=== PATIENT | female | born 1960 | race Caucasian/White ===

== ENCOUNTER 2019-01-17 09:22 | Outpatient (REF) | payer OTHER, SELFPAY ==
--- NOTE | 2019-01-17 09:10 | SKI_PTH ---
PATIENT: Janett Schroeder LOC: [facility] U#:[id number] AGE/SX: 58/F ROOM: RE01/17/[address]: Mely Abreu MD : 1960 BED: DIS: 01/17/2019 SPEC #: [id number] RECD: 01/17/19 12:48 STATUS: TIGRE REQ #: [id number] LANG: 01/17/19 09:[address]: Mely Abreu DEPT: Surgical Specimen RECD BY: Roseline Boykin ENTERED: 01/17/19 12:49 SP TYPE: ERNA MTZ DR: Yuri Cummings MD Tissues: 1 - SKIN CYST/TAG/DEBRIDEMENT Procedures: SKIN BIOPSY LEVEL 3 Comments: [id number]
== END 2019-01-17 09:42 ==
LOC: LBN 09:22
PROVIDERS: PCP Family Medicine; Visit Provider Obstetrics & Gynecology
DX: D23.5 Other benign neoplasm of skin of trunk (principal); A63.0 Anogenital (venereal) warts
CPT/HCPCS: 88304

== ENCOUNTER 2019-02-15 01:33 | Outpatient (CLI) | payer OTHER, SELFPAY ==
--- NOTE | 2019-02-15 07:30 | DI.MAMMO_ITS ---
SYMPTOMS/DIAGNOSIS: SCREENING, Z12.31 MAMMOGRAM: Mammograms were interpreted according to the usual protocol including computer analysis with CAD system, tomosynthesis and C view imaging. Comparison with prior examinations. Breast density B. No suspicious masses or microcalcifications are seen. There is an asymmetric density in the posterior right breast seen on the mediolateral oblique view. This has become progressively more prominent compared to prior examinations. Spot compression view is requested for further evaluation. Ultrasound may be indicated at that time. IMPRESSION: Additional views of the right breast as described above. Category 0. MQSA ASSESSMENT OF FINDINGS: Incomplete: Needs additional imaging evaluation. Category 0. Patient will receive a letter notifying them of these results. BI-RADS category B. There are scattered areas of fibroglandular density.
== END 2019-02-15 01:53 ==
PROVIDERS: PCP Family Medicine; Visit Provider Obstetrics & Gynecology
DX: Z12.31 Encounter for screening mammogram for malignant neoplasm of breast (principal); R92.8 Other abnormal and inconclusive findings on diagnostic imaging of breast
CPT/HCPCS: 77063; 77067

== ENCOUNTER 2019-02-19 07:22 | Outpatient (CLI) | payer OTHER, SELFPAY ==
[2019-02-19 08:51] LABS: Anion Gap 10.4 mmol/L (3-11); BUN 10 mg/dL (7-18); CO2 26.6 mmol/L (21.0-32.0); CREATININE 0.68 mg/dL (0.55-1.02); Chloride 106 mmol/L (98-107); Glucose 112 mg/dL (70-100); Potassium 4.2 mmol/L (3.5-5.1); Sodium 143 mmol/L (136-145)
== END 2019-02-19 07:42 ==
PROVIDERS: PCP Family Medicine; Visit Provider Family Medicine
DX: R73.01 Impaired fasting glucose (principal)
CPT/HCPCS: 36415; 80048

== ENCOUNTER 2019-02-20 00:35 | Outpatient (CLI) | payer OTHER, SELFPAY ==
--- NOTE | 2019-02-20 09:00 | DI.COMBO_ITS ---
SYMPTOMS/DIAGNOSIS: F/U MAMMO, DENSITY POSTERIOR RIGHT BREAST HAS BECOME PROGRESSIVELY MORE PROMINENT ADDITIONAL VIEWS OF THE RIGHT BREAST AND RIGHT BREAST ULTRASOUND: A mediolateral compression spot film of the right breast was obtained today. Fibroglandular tissue is demonstrated. There is no definite mass. At ultrasound, no cyst or mass is seen. Six-month follow-up mammogram and ultrasound is recommended. SUMMARY: Category 3, breast density category B. MQSA ASSESSMENT OF FINDINGS: Probably benign. Six month follow-up recommended. Category 3. Patient will receive a letter notifying them of these results. BI-RADS category B. There are scattered areas of fibroglandular density.
== END 2019-02-20 00:55 ==
PROVIDERS: PCP Family Medicine; Visit Provider Obstetrics & Gynecology
DX: Z12.31 Encounter for screening mammogram for malignant neoplasm of breast (principal); R92.8 Other abnormal and inconclusive findings on diagnostic imaging of breast; N64.89 Other specified disorders of breast
CPT/HCPCS: 76642; 77063; 77067

== ENCOUNTER 2019-05-16 10:45 | Outpatient (CLI) | payer OTHER, SELFPAY ==
--- NOTE | 2019-05-16 10:05 | DI.RAD_ITS ---
SYMPTOM/DIAGNOSIS: RT ANKLE PAIN, S/P ORIF, RECENT NEW TRAUMA RIGHT ANKLE: Three views were obtained. Note is again made of previously described fractured fibulotibial screw with plate and screw fixation remaining in the fibula. Alignment appears unchanged in comparison with the previous films.
== END 2019-05-16 11:05 ==
PROVIDERS: PCP Family Medicine; Visit Provider Student in an Organized Health Care Education/Training Program
DX: M25.571 Pain in right ankle and joints of right foot (principal); S82.451D Displaced comminuted fracture of shaft of right fibula, subsequent encounter for closed fracture with routine healing
CPT/HCPCS: 73610

== ENCOUNTER 2019-08-20 02:32 | Outpatient (CLI) | payer OTHER, SELFPAY ==
--- NOTE | 2019-08-20 10:06 | DI.MAMMO_ITS ---
EXAM: MG MAMMO DIAGNOSTIC UNI CLINICAL HISTORY: follow up 6month for right breast density R92.2. TECHNIQUE: Full field digital CC and MLO mammographic images were obtained with 3D tomosynthesis and utilizing computer aided detection (CAD). COMPARISON: 2009 through February of 2019. FINDINGS: Breast Density - Category B - Scattered areas of fibroglandular density This is a six-month follow-up for an area asymmetric density seen posteriorly in the left breast. Masses/Architectural Distortion: None seen. Previously noted area of asymmetry is not seen on the cur rent exam, consistent with overlying fibroglandular tissue. Microcalcifications: No suspicious pleomorphic-type calcifications are seen. Skin Thickening/Nipple Retraction: None. Axilla: Unremarkable. IMPRESSION: 1. BI-RADS category 1, negative. No significant interval change with no specific features of maligna ncy noted. Bilateral screening mammogram should be resumed in 6 months. 2. Unless there is more urgent need, screening mammography is recommended, as per [employer] guidelines. A negative radiographic report should not delay biopsy if a dominant or clinically suspicious mass is present. Up to ten percent of cancers are not identified on mammography. A negative report may reinforce clinical impression. Adenosis and dense breasts may obscure an underlying neoplasm. False positive reports average 6 to 10%. Patient will receive a letter notifying them of these results. BI-RADS Cat 1 - Negative. Breast Density - Category B - Scattered areas of fibroglandular density.
== END 2019-08-20 02:52 ==
PROVIDERS: PCP Family Medicine; Visit Provider Obstetrics & Gynecology
DX: Z12.31 Encounter for screening mammogram for malignant neoplasm of breast (principal); R92.8 Other abnormal and inconclusive findings on diagnostic imaging of breast; N64.59 Other signs and symptoms in breast
CPT/HCPCS: 77061; 77065; G0279

== ENCOUNTER 2020-04-08 03:57 | Outpatient (CLI) | payer OTHER, SELFPAY ==
[2020-04-08 09:40] LABS: Anion Gap 3.8 mmol/L (3-11); BUN 10 mg/dL (7-18); CO2 30.2 mmol/L (21.0-32.0); CREATININE 0.63 mg/dL (0.55-1.02); Calcium 9.1 mg/dL (8.5-10.1); Chloride 106 mmol/L (98-107); Glucose 111 mg/dL (74-106); Potassium 4.4 mmol/L (3.5-5.1); Sodium 140 mmol/L (136-145); TSH 1.71 uIU/mL (0.36-3.74)
== END 2020-04-08 04:17 ==
PROVIDERS: PCP Family Medicine; Visit Provider Family Medicine
DX: I10 Essential (primary) hypertension (principal); R53.83 Other fatigue
CPT/HCPCS: 36415; 80048; 84443

== ENCOUNTER 2020-08-31 16:47 | Emergency (ER) | payer OTHER, SELFPAY ==
[2020-08-31] VITALS (30 sets, daily range): BP systolic 101–186; BP diastolic 62–87; PULSE 75–89; RESP 15–20; TEMP 36.7; O2SAT 94–99
[2020-08-31] MEDS: Normal Saline 1,000 ML 1000 ML IV (17:17)
[2020-08-31] MEDS: EPINEPHrine 1 MG/ML AMP pres-free 0.3 MG SC (17:20)
[2020-08-31] MEDS: methylPREDNISolone SUCC 125 MG VIAL IVP (17:22)
[2020-08-31] MEDS: diphenhydrAMINE 50 MG/ML VIAL IVP (17:22)
[2020-08-31] MEDS: FAMOTIDINE 20 MG/50 ML BAG 200 MG IVPB (17:22)
--- NOTE | 2020-08-31 17:22 | W.ED.GENAD ---
Discharge Plan Disposition Patient Disposition: HOME Condition: Stable Discharge Details Clinical Impression: Anaphylactic reaction Primary Care Provider: Garrison Beltrán ED Provider: Deven Kaplan Home Meds and New Rx's Prescriptions: New prednisone 20 mg tablet 40 mg PO DAILY Qty: 8 RF: 0 diphenhydramine HCl [Benadryl Allergy] 25 mg tablet 25 mg PO TID Qty: 8 RF: 0 epinephrine [EpiPen] 0.3 mg/0.3 mL auto-injector 0.3 mg IM ONCE PRN (Reason: anaphylaxis) Qty: 1 RF: 0 Continued Flovent HFA 110 mcg/actuation HFA aerosol inhaler 2 puff Inhalation BID Qty: 1 RF: 3 loratadine [Claritin] 10 mg Tablet 10 mg PO DAILY RF: 0 Discharge Instructions Instructions: Anaphylaxis (ED) Additional Instructions: Please take prednisone as prescribed. Your next dose is tomorrow afternoon. Please take Benadryl 25 mg every 8 hours for the next 2 days. Please stop taking Claritin while you are using Benadryl. Please contact your primary care physician to arrange follow-up. Be sure to discuss your reaction with occupational medicine for recommendations on whether or not to receive the second vaccine dose. Return to the ER for any worsening or new concerning symptoms. Referrals: Occupational Medicine [Outside] Garrison Beltrán [Primary Care Provider] - Medical Decision Making 17:00 -- 60-year-old female here approximately 2 hours after receiving return COVID-19 vaccine throat tightness and swelling that started about an hour after receiving vaccination also with dizziness, hot flashes, generalized feeling of warmth and some nausea. Airway is currently intact but I am concerned about symptoms and potential for progression. Plan to treat for anaphylaxis with epinephrine SC, Solu-Medrol IV, Benadryl IV, and Pepcid IV. Patient is hypertensive. Saturating well and not tachycardic. 17:50 --patient reassessed and flushing improved. 18:06 -- patient now complaining of cough and chest discomfort. screening ECG was nondiagnostic, please see report. --Chest x-ray was reviewed and interpreted by radiology: No active cardiopulmonary disease identified. The cardiomediastinal silhouette is within normal limits. --Patient reassessed and notes all symptoms resolved. Feels much better. 21:30 --repeat ECG nondiagnostic, please see report. Troponin was checked and normal. Blood pressure improved. Patient continues to show no signs of allergic reaction at this time. Plan to continue antihistamine, prednisone, and plan for outpatient follow-up. I encouraged her to contact occupational medicine to discuss whether or not second vaccine dose is contraindicated. Disposition decision was made weighing the risks and benefits of hospitalization versus outpatient treatment, the risk for further decompensation, and the patient's wishes. The patient was stable and requested discharge. Prior to discharge, my usual and customary return precautions were reviewed with the patient - this included follow-up instructions and reason to return to the emergency department if condition worsens, does not improve as expected, or other new concerns arise. HPI General Mode of arrival: ambulatory. Date/Time Provider Initiated Documentation: 08/31/20 16:51. Limitations to Documentation: no limitations. Information obtained by: patient. HPI Narrative: 60-year-old female here approximately 2 hours after receiving return COVID-19 vaccine throat tightness and swelling that started about an hour after receiving vaccination. She does have some general feeling of warm and did have some nausea initially. No difficulty breathing. She has had some hot flashes and dizziness. Symptoms are moderate. No modifiers. Persistent. Related Data Home Medications Medication Instructions Recorded Confirmed fluticasone propionate 110 2 puff INHALATION BID #1 ea 09/03/19 08/31/20 mcg/actuation HFA aerosol inhaler diphenhydramine HCl [Benadryl 25 mg PO TID #8 tab 08/31/20 Allergy] epinephrine [EpiPen] 0.3 mg IM ONCE PRN #1 ea 08/31/20 loratadine [Claritin] 10 mg PO DAILY 08/31/20 08/31/20 prednisone 40 mg PO DAILY #8 tab 08/31/20 Previous Rx's Medication Instructions Recorded fluticasone propionate 110 2 puff INHALATION BID #1 ea 09/03/19 mcg/actuation HFA aerosol inhaler diphenhydramine HCl [Benadryl 25 mg PO TID #8 tab 08/31/20 Allergy] epinephrine [EpiPen] 0.3 mg IM ONCE PRN #1 ea 08/31/20 prednisone 40 mg PO DAILY #8 tab 08/31/20 Allergies Allergy/AdvReac Type Severity Reaction Status Date / Time morphine Allergy Severe skin rash Verified 08/31/20 17:39 povidone-iodine Allergy Severe red rash Verified 08/31/20 17:39 [From Betadine] for days soap [From Betadine] Allergy Severe red rash Verified 08/31/20 17:39 for days General Stated Complaint: Allergic TASH: 2 Review of Systems All systems reviewed & are unremarkable except as noted in HPI and below Constitutional Constitutional: Denies fever(s) ENT Ears, Nose, Mouth, and Throat: Reports as per HPI Cardiovascular Cardiovascular: Denies dyspnea Respiratory Respiratory: Denies dyspnea Gastrointestinal Gastrointestinal: Reports as per HPI Integumentary/Breasts Skin/Breast: Reports erythema [facility] Medical History Closed fracture of right ankle (10/05/16) Perimenopause (11/03/15) Right posterior tibial strain Surgical History Cholecystectomy (~1987) Colonoscopy - [facility] 01/14/14;[facility] [place];NEG Status post cholecystectomy Status post tonsillectomy Tonsillectomy 20 yrs old Family History Mother , Lung CA at age 70. Neoplasm LUNG Father , 72 Diabetes Aneurysm Heart disease Hyperlipidemia Stroke Sister , 58 Heart disease Hyperlipidemia Diabetes Sister , 56 Fibromyalgia Depression Cancer Grandfather Neoplasm STOMACH Grandfather Neoplasm SKIN Grandmother Neoplasm LYMPHOMA Grandmother Neoplasm STOMACH Son , 34 Alcohol abuse Son , 33 Substance abuse Daughter Autoimmune disease Heart disease Social History Smoking/Tobacco Use Status: Never Second Hand Exposure: Yes Smoking risk assessment performed?: Yes Alcohol Intake: current Alcohol Intake frequency: holidays/special occasions only Alcohol type: beer, wine and hard liquor Drug use: Never Substance use type: does not use Counseling given: No Counseling provided: none Caregiver/Support person: No Household members: spouse Housing: house Communication Needs: None Do you need help understanding health information?: Never Pets and animals: Yes (COWS,PIGS,CHICKENS,TURKEYS,GUINEAHENS) Pets and animals: cat(s) and dog(s) Sexually active: Yes Do you think of yourself as: straight/heterosexual Current gender identity: female What is your relationship status?: How often do you get together with friends or relatives?: once per week Do you belong to any clubs or organized social groups?: no Panel score (0-1 are the most socially isolated patients): 1 What type of physical activity do you participate in: none Sandy/Jehovah'S Witness: Sabianism Special sandy needs: No Seatbelt use: sometimes Helmet use: Yes Drive intox or ride w/intox jinrikisha driver: No Exam Const General: cooperative and no acute distress HENMT Mouth: oropharynx normal, moist mucous membranes, no audible dysphonia, no drooling and no muffled voice Throat: posterior oropharynx normal, uvula midline and no uvular edema Eyes Conjunctivae: normal conjunctivae Sclera: normal sclerae Neck Neck: trachea midline and supple Resp Auscultation: clear to auscultation bilaterally, no rales, no rhonchi and no wheezes Cardio Rate: regular rate and not tachycardic Rhythm: regular rhythm GI Palpation: soft, not firm, no guarding, no masses, not rigid and nontender Skin Rashes: rashes noted (Mild redness bilateral upper extremities) Neuro General: patient alert, patient awake and tone normal Extrem General: no edema Psych Appearance: grossly normal Mental Status: mental status grossly normal Course Vital Signs Vital signs: Vital Signs Temperature 36.7 C 08/31/20 16:51 Pulse 87 08/31/20 16:51 Respiratory Rate 20 08/31/20 16:51 Blood Pressure 181/84 H 08/31/20 16:51 Pulse Oximetry 97 08/31/20 16:51 Temperature 36.7 C 08/31/20 16:51 Temperature Source Skin 08/31/20 16:51 Pulse 87 08/31/20 16:51 Respiratory Rate 20 08/31/20 16:51 Blood Pressure 181/84 H 08/31/20 16:51 Blood Pressure Position Sitting 08/31/20 16:51 Pulse Oximetry 97 08/31/20 16:51 Oxygen Delivery Method Room Air 08/31/20 16:51 Oxygen Flow Rate 0 08/31/20 16:51 Critical Care Time Critical Care Time Critical Care Time: Yes Total Critical Care Time: 40 Attestation: I spent greater than 40 minutes addressing this patient's immediate life threats. Please see MDM section of note. This time was spent engaged in work directly related to the patient's care, exclusive of separate procedures, and failure to initiate these interventions would have likely resulted in clinically significant or life threatening deterioration in the patient's condition.
[2020-08-31 17:42] LABS: TSH (W/Ref FT4) 1.83 uIU/mL (0.36-3.74)
--- NOTE | 2020-08-31 17:45 | RT.EKG_ITS ---
APPROVED REPORT Exam: Resting ECG Patient Location: E HR:81 bpm ECG Measurements Heart Rate 81 AXIS AL 149 P 20 QRSd 88 QRS -4 QT 434 T 55 QTc 505 Conclusion Sinus rhythm...normal P axis, V-rate 60- 99 no stemi
--- NOTE | 2020-08-31 19:15 | DI.RAD_ITS ---
EXAM: XR PORTABLE CHEST AP CLINICAL HISTORY: chest pain TECHNIQUE: 2D digital imaging was performed. COMPARISON: CR CHEST 2 VIEWS PA,LAT from 05/04/2016 FINDINGS: LUNGS: Not well inflated but clear. No pleural abnormality seen. HEART: Normal. MEDIASTINUM: Normal. BONES: Degenerative changes AC joints. Mild degenerative changes in the spine. IMPRESSION: No acute pulmonary findings. DATA REPOSITORY: RADIATION DOSE DELIVERED:
--- NOTE | 2020-08-31 19:49 | DI.VRAD_ITS ---
PROCEDURE INFORMATION: Exam: XR Chest, 1 View Exam date and time: 08/31/2020 7:27 PM Age: 60 years old Clinical indication: Chest pain; Type not specified TECHNIQUE: Imaging protocol: XR of the chest Views: 1 view. COMPARISON: CR CHEST 2 VIEWS PA,LAT 05/04/2016 5:49 AM FINDINGS: Lungs: The lungs are clear. There is no pulmonary vascular congestion. Pleural space: No layering pleural effusions are identified. Heart/Mediastinum: The cardiomediastinal silhouette is within normal limits. Bones/joints: There is mild bilateral AC joint arthrosis, as on prior study. IMPRESSION: No active cardiopulmonary disease identified. Unchanged exam. Dictated and Authenticated by: Yuri Wallis MD. Ordering:MUNIR Carvalho MD
--- NOTE | 2020-08-31 20:15 | RT.EKG_ITS ---
APPROVED REPORT Exam: Resting ECG Patient Location: E HR:81 bpm ECG Measurements Heart Rate 81 AXIS AL 163 P 10 QRSd 86 QRS -13 QT 416 T 50 QTc 485 Conclusion Sinus rhythm...normal P axis, V-rate 60- 99
[2020-08-31 20:34] LABS: HCT 39.1 % (36.0-46.0); HGB 12.8 g/dL (11.2-15.7); MCH 25.8 pg (27.0-33.0); MCHC 32.7 % (32.0-36.0); MCV 78.7 fL (80-95); MPV 9.1 fL (8.0-11.0); Platelet Count 299 10^3/uL (130-400); RBC 4.97 10^6/uL (3.93-5.22); RDW 14.3 % (11.7-14.6); RDW-SD 40.8 fL; WBC 10.54 10^3/uL (4.4-10.8)
[2020-08-31 20:50] LABS: ALT 79 U/L (14-59); AST 39 U/L (15-37); Albumin 3.7 g/dL (3.4-5.0); Alkaline Phosphatase 114 U/L (46-116); Anion Gap 6.8 mmol/L (3-11); BUN 9 mg/dL (7-18); Bilirubin, Total 0.5 mg/dL (0.2-1.0); CO2 26.2 mmol/L (21.0-32.0); CREATININE 0.81 mg/dL (0.55-1.02); Calcium 8.7 mg/dL (8.5-10.1); Chloride 109 mmol/L (98-107); Glucose 111 mg/dL (74-106); Potassium 3.6 mmol/L (3.5-5.1); Sodium 142 mmol/L (136-145); Total Protein 7.7 g/dL (6.4-8.2)
[2020-08-31 21:05] LABS: Troponin I < 0.05 ng/mL (<0.06)
== END 2020-08-31 21:30 | disposition home or self-care (01) ==
PROVIDERS: Emergency Provider Student in an Organized Health Care Education/Training Program; PCP Family Medicine
DX: T80.52XA Anaphylactic reaction due to vaccination, initial encounter (principal); T50.B95A Adverse effect of other viral vaccines, initial encounter; R09.89 Other specified symptoms and signs involving the circulatory and respiratory systems; R07.89 Other chest pain; R05 Cough; R23.2 Flushing
CPT/HCPCS: 36415; 80053; 85027; 93005; 96361; 96372; 96374; 96375; 99291; 71045; 84443; 84484; 93010; J0171; J1200; J2930

== ENCOUNTER 2021-01-18 10:04 | Outpatient (REF) | payer OTHER, SELFPAY ==
--- NOTE | 2021-01-18 08:40 | PAPFT_PTH ---
PATIENT: Janett Schroeder LOC: [facility] U#:[id number] AGE/SX: 60/F ROOM: RE01/18/[address]: LIAM Johns : 1960 BED: DIS: 01/18/2021 SPEC #: [id number] RECD: 01/18/21 12:57 STATUS: TIGRE REMiguel Angel #: [id number] LANG: 01/18/21 08:[address]: Sydnie Wright DEPT: [facility] Cytology RECD BY: Roseline Boykin ENTERED: 01/18/21 12:58 SP TYPE: PAPFT OTHR DR: Garrison Beltrán MD Tissues: 1 - CX/ENDOCX FOR PAP SMEARS Procedures: PAP THIN PREP/UVM Screening HPV DNA PROBE Comments: [id number]
== END 2021-01-18 10:05 | disposition home or self-care (01) ==
LOC: LBN 10:04
PROVIDERS: PCP Family Medicine; Visit Provider Nurse Practitioner Family
DX: Z12.4 Encounter for screening for malignant neoplasm of cervix (principal); Z11.51 Encounter for screening for human papillomavirus (HPV)
CPT/HCPCS: 88142; 87624

== ENCOUNTER 2021-01-28 01:38 | Outpatient (CLI) | payer OTHER, SELFPAY ==
--- NOTE | 2021-01-28 06:45 | DI.MAMMO_ITS ---
Exam(s) MAMMO SCREENING EXAM: MAMMO SCREENING CLINICAL HISTORY: screening,Z12.39. TECHNIQUE: Bilateral full field digital CC and MLO mammographic images were obtained with 3D tomosyn thesis and utilizing computer aided detection (CAD). COMPARISON: Prior mammograms dating back to 2012, the most recent being February 2019. Right breast ultrasound February 2019 also reviewed FINDINGS: There has been no significant change in the appearance and distribution of the fibroglandular tissue. Asymmetric density the in the right breast is unchanged from prior studies. Benign punctate microcal cifications are noted in both breasts. There are no new spiculated masses nor malignant appearing microcalcification groups. There is no significant architectural distortion nor skin thickening-retraction. IMPRESSION: No radiographic evidence of malignancy. BI-RADS Category 1 - Negative Breast Density - Category B - Scattered areas of fibroglandular density Breast density Category C or D implies that the patient has dense breast tissue. Dense breast tissue can make it harder to find cancer on a mammogram. Dense breast tissue is also associated with an incr eased risk of breast cancer. This information about the result of the mammogram report was provided to the patient to raise their awareness. Use this report when you speak with the patient about their risks for breast cancer, which includes their family history. At that time, you may recommend additional screening tests (Ultrasoun d or MRI) as these tests may add significant information. A negative radiographic report should not delay biopsy if a dominant or clinically suspicious mass is present. Up to ten percent of cancers are not identified on mammography. A negative report may reinforce clinical impression. Adenosis and dense breasts may obscure an underlying neoplasm. False positive reports average 6 to 10%. Patient will receive a letter notifying them of these results.
== END 2021-01-28 01:58 ==
PROVIDERS: PCP Nurse Practitioner Family; Visit Provider Nurse Practitioner Family
DX: Z12.31 Encounter for screening mammogram for malignant neoplasm of breast (principal)
CPT/HCPCS: 77063; 77067

== ENCOUNTER 2021-04-15 04:20 | Outpatient (CLI) | payer OTHER, SELFPAY ==
[2021-04-15 16:28] LABS: Hemoglobin A1C 5.7 % (<5.7)
[2021-04-15 16:30] LABS: ALT 38 U/L (14-59); AST 25 U/L (15-37); Albumin 3.8 g/dL (3.4-5.0); Alkaline Phosphatase 103 U/L (46-116); Anion Gap 10.4 mmol/L (3-11); BUN 11 mg/dL (7-18); Bilirubin, Total 0.4 mg/dL (0.2-1.0); CO2 26.6 mmol/L (21.0-32.0); CREATININE 1.5 mg/dL (0.55-1.02); Calcium 9.1 mg/dL (8.5-10.1); Calculated LDL 131 mg/dL (<100); Chloride 105 mmol/L (98-107); Cholesterol 207 mg/dL (<200); Estimated GFR 35.67 (mL/min/1.73m2); Glucose 88 mg/dL (74-106); HDL Cholesterol 47 mg/dL (40-60); Potassium 4.2 mmol/L (3.5-5.1); Sodium 142 mmol/L (136-145); TSH 1.19 uIU/mL (0.36-3.74); Total Protein 7.2 g/dL (6.4-8.2); Triglyceride 148 mg/dL (<150)
== END 2021-04-15 04:21 | disposition home or self-care (01) ==
LOC: LBO 04:20
PROVIDERS: PCP Nurse Practitioner Family; Visit Provider Nurse Practitioner Family
DX: Z00.00 Encounter for general adult medical examination without abnormal findings (principal); Z13.220 Encounter for screening for lipoid disorders; Z13.1 Encounter for screening for diabetes mellitus; Z13.29 Encounter for screening for other suspected endocrine disorder
CPT/HCPCS: 36415; 80053; 80061; 83036; 84443

== ENCOUNTER 2021-04-22 03:13 | Outpatient (CLI) | payer OTHER, SELFPAY ==
[2021-04-22] MEDS: Methacholine 100 MG VIAL IH (17:04)
[2021-04-22] MEDS: Inhaler, Assist Device 1 EACH MC (17:05)
[2021-04-22] MEDS: Albuterol HFA 18 GM 200 PUFF INH IH (17:05)
--- NOTE | 2021-04-23 15:58 | W.PFT ---
Date of service: 04/23/21 Time of Service: 14:57 Pulmonary Function Test Result Requesting Provider Sonali Interpretation Spirometry: There is no airflow limitation. There was not a significant decrease in FEV1 with methacholine administration. Lung Volumes: Lung volumes are normal. Diffusion Capacity: The diffusion is normal. Airway Pressure: Airways resistance is normal. Impression Normal pulmonary function test. Negative methacholine challenge test. Note: When compared to March 04, 2013 the FVC and FEV1 are slightly reduced however with normal limits accounting for age. Clinical Correlation therefore is recommended.
== END 2021-04-22 03:14 | disposition home or self-care (01) ==
LOC: RT 03:13
PROVIDERS: PCP Nurse Practitioner Family; Visit Provider Student in an Organized Health Care Education/Training Program
DX: R05 Cough (principal)
CPT/HCPCS: 94060; 94726; 94729; 95070; 94010; J7674

== ENCOUNTER 2021-05-04 15:34 | Emergency (ER) | payer OTHER, SELFPAY ==
[2021-05-04] VITALS (8 sets, daily range): BP systolic 121–133; BP diastolic 59–69; PULSE 60–69; RESP 14–20; TEMP 36.2; O2SAT 97–99
--- NOTE | 2021-05-04 15:30 | RT.EKG_ITS ---
APPROVED REPORT Exam: Resting ECG Reason for Exam: passed out Patient Location: E HR:63 bpm ECG Measurements Heart Rate 63 AXIS KS 174 P 17 QRSd 83 QRS -15 QT 448 T 34 QTc 459 Conclusion Sinus rhythm...normal P axis, V-rate 60- 99
--- NOTE | 2021-05-04 16:00 | DI.CT_ITS ---
Exam(s) CT HEAD WO EXAM: CT HEAD WO CLINICAL HISTORY: Frontal contusion, syncope. TECHNIQUE: Imaging Protocol: Axial computed tomography images with coronal and sagittal reformatted images were created and reviewed COMPARISON: No exams were available for comparison FINDINGS: Ventricles and Extra axial spaces: Normal in size and morphology for the patient's age. Hemorrhage: None. Cerebral parenchyma: Normal. Midline shift: None. Brainstem/Cerebellum: Normal. Calvarium: Normal. Visualized Paranasal sinuses/Mastoids: Clear. Soft Tissues: Left frontal scalp hematoma. IMPRESSION: 1. No acute intracranial process. 2. Left frontal scalp hematoma. RADIATION DOSE DELIVERED: 695.92mGy.cm Total DLP DATA REPOSITORY: All CT scans at this facility are submitted to the National Radiology Data Registry (NRDR) Dose Index Registry (DIR) with the [employer] (ACR). RADIATION OPTIMIZATION: All CT scans at this facility use at least one of these dose optimization te chniques: automated exposure control; mA and/or kV adjustment per patient size (includes targeted exa ms where dose is matched to clinical indication); or iterative reconstruction.
[2021-05-04] MEDS: Normal Saline 1,000 ML 1000 ML IV (16:01)
--- NOTE | 2021-05-04 16:02 | W.ED.GENAD ---
Discharge Plan Disposition Patient Disposition: HOME Condition: Improving Discharge Details Clinical Impression: Hematoma, Vasovagal syncope Primary Care Provider: Panfilo Fagan ED Provider: Johnnie Antony Home Meds and New Rx's Prescriptions: Continued Flovent HFA 110 mcg/actuation HFA aerosol inhaler 2 puff Inhalation BID Qty: 1 RF: 3 diphenhydramine HCl [Benadryl Allergy] 25 mg tablet 25 mg PO TID Qty: 8 RF: 0 epinephrine [EpiPen] 0.3 mg/0.3 mL auto-injector 0.3 mg IM ONCE PRN (Reason: anaphylaxis) Qty: 1 RF: 0 Discharge Instructions Instructions: Syncope (ED), Hematoma (ED) Additional Instructions: Apply ice to area to reduce discomfort. May use Tylenol and/or ibuprofen as needed for pain. Anticipate that you may have spreading of the bruising on your forehead as we discussed. Home to rest this evening. Return to the ER for any acute concerns. 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 After lunch she felt bloating and gurgling with urge to defecate. She went to the bathroom, sat on the toilet, became diaphoretic and then fell forward striking her head with a syncopal event. She is unsure how long she was out. She notes that she had production of loose watery stool. She denies chest pain or palpitations. She then cleaned herself up and went back to work, and was referred to the ER after developing a frontal hematoma. Patient denies neck pain. She feels slightly weak but no focal neurologic deficits. Her vital signs are reassuring and her exam notes frontal hematoma but no neurologic deficits. Most consistent with a vagal mediated micturition type syncope, must exclude underlying electrolyte abnormality, anemia, or dehydration. Patient IV access established, given fluid bolus, referred for screening EKG and CT scan of the head I have reviewed the patient's records and note a previously normal chest x-ray in August 2020 do not feel that cardiomegaly needs to be excluded with repeat chest x-ray today. CT scan of the head is without acute intracranial findings. Laboratories note unremarkable CBC with hematocrit of 40, chemistries within normal limits, troponin is negative. Patient without further discomfort. She will likely develop progressive ecchymosis from her hematoma which I discussed with her. This is consistent with a vagal mediated response and she is stable for discharge at this time. HPI General Mode of arrival: ambulatory. Date/Time Provider Initiated Documentation: 05/04/21 15:35. Limitations to Documentation: no limitations. Information obtained by: patient. History of Present Illness 60 year old F presents to the emergency department with the chief complaint of Syncope, struck head, described as moderate, Quality is described as dull and constant, and is localized to the head. Patient reports no radiation. Patient started experiencing this minute(s) and it has been constant. No relieving factors improve symptom(s), No exacerbating factors reported . Patient notes diaphoresis and other (Loose stool, was nauseated but did not have emesis); denies chest pain, shortness of breath and weakness. Patient did receive the following treatments prior to arrival, none Related Data Home Medications Medication Instructions Recorded Confirmed diphenhydramine HCl [Benadryl 25 mg PO TID #8 tab 08/31/20 05/04/21 Allergy] epinephrine [EpiPen] 0.3 mg IM ONCE PRN #1 ea 08/31/20 05/04/21 fluticasone propionate 110 2 puff INHALATION BID #1 ea 11/24/20 05/04/21 mcg/actuation HFA aerosol inhaler Previous Rx's Medication Instructions Recorded diphenhydramine HCl [Benadryl 25 mg PO TID #8 tab 08/31/20 Allergy] epinephrine [EpiPen] 0.3 mg IM ONCE PRN #1 ea 08/31/20 fluticasone propionate 110 2 puff INHALATION BID #1 ea 11/24/20 mcg/actuation HFA aerosol inhaler Allergies Allergy/AdvReac Type Severity Reaction Status Date / Time morphine Allergy Severe skin rash Verified 05/04/21 15:50 povidone-iodine Allergy Severe red rash Verified 05/04/21 15:50 [From Betadine] for days soap [From Betadine] Allergy Severe red rash Verified 05/04/21 15:50 for days General Stated Complaint: Dizzy/Sync TASH: 2 Review of Systems Narrative: Donated blood this morning. Not recently ill. 6 systems reviewed and otherwise negative [facility] Medical History Closed fracture of right ankle (10/05/16) Perimenopause (11/03/15) Right posterior tibial strain Surgical History Cholecystectomy (~1987) [place] [facility] [place] [place] Status post cholecystectomy Status post tonsillectomy Tonsillectomy 20 yrs old Family History Mother , Lung CA at age 70. Neoplasm LUNG Father , 72 Diabetes Aneurysm Heart disease Hyperlipidemia Stroke Sister , 58 Heart disease Hyperlipidemia Diabetes Sister , 56 Fibromyalgia Depression Cancer Grandfather Neoplasm STOMACH Grandfather Neoplasm SKIN Grandmother Neoplasm LYMPHOMA Grandmother Neoplasm STOMACH Son , 34 Alcohol abuse Son , 33 Substance abuse Daughter Autoimmune disease Heart disease Social History Smoking/Tobacco Use Status: Never Second Hand Exposure: Yes Smoking risk assessment performed?: Yes Alcohol Intake: current Alcohol Intake frequency: a few times a month Alcohol type: wine Drug use: Never Substance use type: does not use Counseling given: No Counseling provided: none Caregiver/Support person: No Household members: spouse Housing: house Communication Needs: None Do you need help understanding health information?: Never Pets and animals: Yes (COWS,PIGS,CHICKENS,TURKEYS,GUINEAHENS) Pets and animals: cat(s) Sexually active: No Do you think of yourself as: straight/heterosexual Exam Narrative Exam Narrative: GEN: awake, alert, oriented 3. Pleasant, well groomed, interactive. HEAD: Normocephalic, mid frontal bone with approximately 5 cm diameter area of cephalohematoma that is tender to the touch and with ecchymosis. No bony instability. Midface is nontender. ENT: Mucous membranes moist, oropharynx unremarkable, External ear exam unremarkable, no midface instability or anesthesia, no loose teeth. EYES: PERRL, EOMI NECK: Full ROM, no DESIREE, no menigismus CHEST/RESP: Nontender, clear to auscultation bilateral, no wheeze/rhonchi/rales CARDIOVASCULAR: RRR, no murmur, rub destin. 2+ Rad pulse bilateral ABDOMEN: Soft, nontender, no mass. +Bowel sounds EXT: Full ROM, no edema, no rash Neuro: Grossly normal neurologic exam, conversant, interactive. [id number] within normal limits. Psych: Speech fluent, thoughts congruent, affect normal Course Vital Signs Vital signs: Vital Signs Temperature 36.2 C L 05/04/21 15:41 Pulse 67 05/04/21 15:41 Respiratory Rate 14 05/04/21 15:41 Blood Pressure 133/69 05/04/21 15:41 Pulse Oximetry 99 05/04/21 15:41 Temperature 36.2 C L 05/04/21 15:41 Temperature Source Skin 05/04/21 15:41 Pulse 67 05/04/21 15:41 Respiratory Rate 16 05/04/21 15:52 Respiratory Effort 05/04/21 15:52 Respiratory Depth Normal 05/04/21 15:52 Respiratory Pattern Normal 05/04/21 15:52 Blood Pressure 133/69 05/04/21 15:41 Blood Pressure Position Supine 05/04/21 15:41 Pulse Oximetry 99 05/04/21 15:41 Oxygen Delivery Method Room Air 05/04/21 15:41 Oxygen Flow Rate 0 05/04/21 15:41 Pain Level 2 05/04/21 15:41
[2021-05-04 16:20] LABS: Abs Immature Grans 0.03 10^3/uL (0.0-0.06); Absolute Basophil Count 0.11 10^3/uL (0.0-0.2); Absolute Eosinophil Count 0.28 10^3/uL (0.0-0.7); Absolute Lymphocyte Count 2.36 10^3/uL (1.2-3.4); Absolute Monocyte Count 0.55 10^3/uL (0.1-0.8); Absolute Neutrophil Count 4.32 10^3/uL (1.2-6.7); Basophils % 1.4; Eosinophils % 3.7; HGB 12.9 g/dL (11.2-15.7); Immature Grans % 0.4; Lymphocytes % 30.8; MCH 25.3 pg (27.0-33.0); MCHC 32.3 % (32.0-36.0); MCV 78.4 fL (80-95); MPV 9.5 fL (8.0-11.0); Monocytes % 7.2; Neutrophils % 56.5; Nucleated RBC 0 %; Platelet Count 335 10^3/uL (130-400); RDW 13.2 % (11.7-14.6); RDW-SD 37.8 fL; WBC 7.65 10^3/uL (4.4-10.8)
[2021-05-04 16:30] LABS: Magnesium 2.3 mg/dL (1.8-2.4)
--- NOTE | 2021-05-04 16:38 | DI.VRAD_ITS ---
PROCEDURE INFORMATION: Exam: CT Head Without Contrast Exam date and time: 05/04/2021 4:03 PM Age: 60 years old Clinical indication: Other: Frontal contusion, syncope TECHNIQUE: Imaging protocol: Computed tomography of the head without contrast. Radiation optimization: All CT scans at this facility use at least one of these dose optimization techniques: automated exposure control; mA and/or kV adjustment per patient size (includes targeted exams where dose is matched to clinical indication); or iterative reconstruction. COMPARISON: No relevant prior studies available. FINDINGS: Brain: Normal. No hemorrhage. Unremarkable white matter. No mass effect. Cerebral ventricles: No ventriculomegaly. Paranasal sinuses: Visualized sinuses are unremarkable. No fluid levels. Mastoid air cells: Visualized mastoid air cells are well aerated. Bones/joints: Unremarkable. No acute fracture. Soft tissues: Left frontal scalp hematoma. IMPRESSION: No acute intracranial abnormality. Dictated and Authenticated by: Troy Lorenz MD. Ordering:ELISEO Blair MD
[2021-05-04 16:44] LABS: ALT 35 U/L (14-59); AST 16 U/L (15-37); Albumin 3.9 g/dL (3.4-5.0); Alkaline Phosphatase 106 U/L (46-116); BUN 13 mg/dL (7-18); Bilirubin, Total 0.5 mg/dL (0.2-1.0); CREATININE 0.8 mg/dL (0.55-1.02); Calcium 9.3 mg/dL (8.5-10.1); Chloride 105 mmol/L (98-107); Glucose 106 mg/dL (74-106); Potassium 3.7 mmol/L (3.5-5.1); Sodium 141 mmol/L (136-145); Total Protein 7.8 g/dL (6.4-8.2)
[2021-05-04 17:11] LABS: Troponin I < 0.05 ng/mL (<0.06)
== END 2021-05-04 17:36 | disposition home or self-care (01) ==
PROVIDERS: Emergency Provider Emergency Medicine; PCP Nurse Practitioner Family
DX: R55 Syncope and collapse (principal); S00.83XA Contusion of other part of head, initial encounter; W08.XXXA Fall from other furniture, initial encounter
CPT/HCPCS: 36415; 80053; 93005; 96361; 99284; 70450; 83735; 84484; 85025; 93010

== ENCOUNTER 2021-10-01 04:31 | Outpatient (CLI) | payer OTHER, SELFPAY ==
[2021-10-01 15:13] LABS: TSH 1.68 uIU/mL (0.36-3.74)
== END 2021-10-01 04:32 | disposition home or self-care (01) ==
LOC: LBO 04:31
PROVIDERS: PCP Nurse Practitioner Family; Visit Provider Nurse Practitioner Family
DX: E04.1 Nontoxic single thyroid nodule (principal)
CPT/HCPCS: 36415; 84443

== ENCOUNTER 2021-12-27 03:12 | Outpatient (CLI) | payer OTHER, SELFPAY ==
--- NOTE | 2021-12-27 07:00 | DI.US_ITS ---
Exam(s) US NEEDLE LOCAL OTHER WO RAD EXAM: thyroid nodule,FINE NEEDLE ASPIRATION OF NODULE,E04.1 COMPARISON: No exams were available for comparison TECHNIQUE: Ultrasound performed using standard protocol. FINDINGS: Sonography was provided for Dr. Fallon during the performance of a FNA of a thyroid nodule. Please refer to the procedure report for complete details. DATA REPOSITORY:
--- NOTE | 2021-12-27 10:45 | PAPNONF_PTH ---
PATIENT: Janett Schroeder LOC: [facility] U#:[id number] AGE/SX: 61/F ROOM: RE12/27/[address]: Stefano Fallon MD : 1960 BED: DIS: 12/27/2021 SPEC #: [id number] RECD: 12/27/21 13:19 STATUS: TIGRE REMiguel Angel #: [id number] LANG: 12/27/21 10:[address]: Stefano Fallon DEPT: [facility] Cytology RECD BY: Roseline Boykin ENTERED: 12/27/21 13:20 SP TYPE: JYOTI MTZ DR: Panfilo Fagan, GRAY Tissues: 1 - BODY FLUID CYTO-FINE NEEDLE ASPIRATE-[facility] Procedures: BODY FLUID CYTO-FINE NEEDLE ASPIRATE-[facility] Comments: [id number]
--- NOTE | 2021-12-27 12:25 | OPPNE_ITS ---
Procedure Note Date of procedure: 12/27/21 Procedure: Ultrasound-guided FNA, thyroid nodule Surgeon/Proceduralist/Physician: Stefano Fallon Procedure Indications: Patient with a isthmus thyroid nodule TR 3, greater than 3 cm, asymptomatic. No previous biopsy. Options were explained to the patient and she elected to proceed with the above procedure Procedure Description: The patient was positioned in a supine position with her neck slightly extended. Ultrasound was used to localize the isthmus nodule. The patient was then prepped and draped in appropriate fashion and 1% lidocaine with 1/100,000 epin ephrine was injected into the skin and subcutaneous tissues overlying the nodule. A 25-gauge needle was then carefully introduced into the nodule and biopsy was removed. Pathology was available to check for cellular adequacy. After ensuring adequate cellularity, 2 additional passes were made for Afirma testing. After ensuring adequate hemostasis a sterile dressing was applied and the patient was allowed to slowly stand up, with her vital signs remaining stable. She will call with any signs of infection or any concerns. She will call if she does not hear from me within 1 week with regard to pathology. She will remove the bandage tomorrow morning she had no further questions. She is comfortable with the plan.
== END 2021-12-27 03:32 ==
PROVIDERS: PCP Nurse Practitioner Family; Visit Provider Otolaryngology
DX: E04.1 Nontoxic single thyroid nodule (principal); E06.3 Autoimmune thyroiditis
CPT/HCPCS: 76942; 88104

== ENCOUNTER 2022-03-10 11:50 | Outpatient (CLI) | payer OTHER, SELFPAY ==
[2022-03-10 16:45] LABS: FREE T4 1.19 ng/dL (0.76-1.46); TSH 0.24 uIU/mL (0.36-3.74)
== END 2022-03-10 11:51 | disposition home or self-care (01) ==
LOC: LBO 11:51
PROVIDERS: PCP Nurse Practitioner Family; Visit Provider Otolaryngology
DX: E01.0 Iodine-deficiency related diffuse (endemic) goiter (principal); E04.1 Nontoxic single thyroid nodule; E06.3 Autoimmune thyroiditis
CPT/HCPCS: 36415; 84439; 84443

== ENCOUNTER → 2022-04-19 01:08 | Outpatient (CLI) | payer OTHER, SELFPAY ==
--- NOTE | 2022-04-19 08:32 | DI.MAMMO_ITS ---
Exam(s) MAMMO SCREENING EXAM: MAMMO SCREENING CLINICAL HISTORY: screening,Z12.39. TECHNIQUE: Bilateral full field digital CC and MLO mammographic images were obtained with 3D tomosyn thesis and utilizing computer aided detection (CAD). COMPARISON: Prior mammograms were reviewed, the most recent being January 2021. FINDINGS: There has been no significant change in the appearance and distribution of the fibroglandular tissue. No new significant findings in the left breast. In the right breast on 3D MLO imaging there is a 4 x 5 millimeter asymmetric density-possible nodule located 5 cm in from the nipple.. Also seen on the CC view. Not evident on prior studies. There are no malignant-appearing microcalcification groups is region or elsewhere in either breast. Scattered benign microcalcifications are again noted bilaterally. There is no significant architectural distortion nor skin thickening-retraction. IMPRESSION: No radiographic evidence of malignancy in the left breast.. Possible 5 x 4 millimeter nodule in the right breast seen on 3D MLO imaging. Recommend spot compress ion MLO view and ultrasound. BI-RADS Category 0 - Assessment Incomplete: Need additional imaging evaluation Breast Density - Category B - Scattered areas of fibroglandular density Breast density Category C or D implies that the patient has dense breast tissue. Dense breast tissue can make it harder to find cancer on a mammogram. Dense breast tissue is also associated with an incr eased risk of breast cancer. This information about the result of the mammogram report was provided to the patient to raise their awareness. Use this report when you speak with the patient about their risks for breast cancer, which includes their family history. At that time, you may recommend additional screening tests (Ultrasoun d or MRI) as these tests may add significant information. A negative radiographic report should not delay biopsy if a dominant or clinically suspicious mass is present. Up to ten percent of cancers are not identified on mammography. A negative report may reinforce clinical impression. Adenosis and dense breasts may obscure an underlying neoplasm. False positive reports average 6 to 10%. Patient will receive a letter notifying them of these results.
== END ==
PROVIDERS: PCP Nurse Practitioner Family; Visit Provider Nurse Practitioner Women's Health
DX: Z12.31 Encounter for screening mammogram for malignant neoplasm of breast (principal); R92.8 Other abnormal and inconclusive findings on diagnostic imaging of breast
CPT/HCPCS: 77063; 77067

== ENCOUNTER 2022-04-21 04:08 | Outpatient (CLI) | payer OTHER, SELFPAY ==
[2022-04-21 13:26] LABS: CREATININE 0.8 mg/dL (0.55-1.02)
== END 2022-04-21 04:09 | disposition home or self-care (01) ==
LOC: LBO 04:08
PROVIDERS: PCP Nurse Practitioner Family; Visit Provider Nurse Practitioner Family
DX: R79.89 Other specified abnormal findings of blood chemistry (principal)
CPT/HCPCS: 36415; 82565

== ENCOUNTER → 2022-04-22 00:20 | Outpatient (CLI) | payer OTHER, SELFPAY ==
--- NOTE | 2022-04-22 09:34 | DI.MAMMO_ITS ---
Exam(s) MAMMO SCREEN CALL BACK UNI EXAM: MAMMO SCREEN CALL BACK UNI CLINICAL HISTORY: NODULE RT BREAST TECHNIQUE: Spot compression views and tomographic imaging were performed. COMPARISON: 19 April 2022 and exams back to 2012. FINDINGS: No suspicious masses or suspicious microcalcifications are seen. No persistent abnormality is seen on the additional views performed. The findings are consistent wit h overlying fibroglandular tissue. There has been no significant change from prior exams. IMPRESSION: BI-RADS Category 1, Negative Yearly screening mammography is recommended. Breast Density - Category B, scattered fibroglandular densities.
== END ==
PROVIDERS: PCP Nurse Practitioner Family; Visit Provider Nurse Practitioner Women's Health
DX: Z12.31 Encounter for screening mammogram for malignant neoplasm of breast (principal)
CPT/HCPCS: 77063; 77067

== ENCOUNTER 2023-04-25 04:44 | Outpatient (CLI) | payer OTHER, SELFPAY ==
[2023-04-25 07:58] LABS: Hemoglobin A1C 5.4 % (<5.7)
[2023-04-25 08:10] LABS: Calculated LDL 154 mg/dL (<100); Cholesterol 227 mg/dL (<200); HDL Cholesterol 58 mg/dL (40-60); TSH (W/Ref FT4) 1.57 uIU/mL (0.36-3.74); Triglyceride 76 mg/dL (<150)
== END 2023-04-25 04:45 | disposition home or self-care (01) ==
LOC: LBO 04:44
PROVIDERS: PCP Nurse Practitioner Family; Visit Provider Nurse Practitioner Family
DX: E06.3 Autoimmune thyroiditis (principal); Z13.1 Encounter for screening for diabetes mellitus; Z13.220 Encounter for screening for lipoid disorders
CPT/HCPCS: 36415; 80061; 83036; 84443

== ENCOUNTER → 2023-04-28 00:36 | Outpatient (CLI) | payer OTHER, SELFPAY ==
--- NOTE | 2023-04-28 07:45 | DI.MAMMO_ITS ---
Exam(s) MAMMO SCREENING EXAM: MAMMO SCREENING CLINICAL HISTORY: screening,Z12.39 TECHNIQUE: Bilateral full field digital CC and MLO mammographic images were obtained with 3D tomosyn thesis and utilizing computer aided detection (CAD). COMPARISON: Available for comparison. FINDINGS: Masses/Architectural Distortion: None seen. Microcalcifications: No suspicious pleomorphic-type are seen. Stable benign type calcifications are s een in both breasts. Skin Thickening/Nipple Retraction: None. IMPRESSION: 1. No significant interval change with no specific features of malignancy noted. 2. Unless there is more urgent need, screening mammography is recommended, as per [place] [employer] guidelines. BI-RADS Category 1 - Negative Breast Density - Category B - Scattered areas of fibroglandular density Breast density category C or D implies that the patient has dense breast tissue. Dense breast tissue is very common and is not abnormal but dense breast tissue can make it harder to find cancer on a ma mmogram. Also, dense breast tissue may increase their breast cancer risk. This information about the result of the mammogram report was provided to the patient to raise their awareness. Use this report when you speak with the patient about their risks for breast cancer, which includes their family hist ory. At that time, you may recommend for more screening tests (Ultrasound or MRI) as they might be us eful based on their risk. A negative radiographic report should not delay biopsy if a dominant or clinically suspicious mass is present. Up to ten percent of cancers are not identified on mammography. A negative report may reinforce clinical impression. Adenosis and dense breasts may obscure an underlying neoplasm. False positive reports average 6 to 10%. Patient will receive a letter notifying them of these results.
== END ==
PROVIDERS: PCP Nurse Practitioner Family; Visit Provider Nurse Practitioner Family
DX: Z12.31 Encounter for screening mammogram for malignant neoplasm of breast (principal)
CPT/HCPCS: 77063; 77067

== ENCOUNTER 2024-04-17 08:15 | Outpatient (CLI) | payer OTHER, SELFPAY ==
[2024-04-17 12:36] LABS: Hemoglobin A1C 5.3 % (<5.7)
[2024-04-17 12:43] LABS: Calculated LDL 132 mg/dL (<100); Cholesterol 205 mg/dL (<200); HDL Cholesterol 56 mg/dL (40-60); TSH (W/Ref FT4) 1.28 uIU/mL (0.36-3.74); Triglyceride 85 mg/dL (<150)
== END 2024-04-17 08:16 | disposition home or self-care (01) ==
LOC: LOS 08:15
PROVIDERS: PCP Nurse Practitioner Family; Referring Provider Nurse Practitioner Family; Visit Provider Nurse Practitioner Family
DX: Z13.1 Encounter for screening for diabetes mellitus (principal); E01.0 Iodine-deficiency related diffuse (endemic) goiter; Z13.220 Encounter for screening for lipoid disorders
CPT/HCPCS: 36415; 80061; 83036; 84443

== ENCOUNTER 2024-04-29 09:27 | Outpatient (REF) | payer OTHER, SELFPAY ==
--- NOTE | 2024-04-29 09:15 | PAPFT_PTH ---
PATIENT: Janett Schroeder LOC: [facility] U#:[id number] AGE/SX: 63/F ROOM: RE04/29/[address]: Nubia Payan NP : 1960 BED: DIS: 04/29/2024 SPEC #: [id number] RECD: 04/29/24 12:07 STATUS: TIGRE REMiguel Angel #: [id number] LANG: 04/29/24 09:[address]: Nubia Payan NP DEPT: [facility] Cytology RECD BY: Leah Sauer ENTERED: 04/29/24 12:08 SP TYPE: PAPFT OTHR DR: Panfilo Fagan NP Tissues: 1 - CX/ENDOCX FOR PAP SMEARS Procedures: PAP THIN PREP/[facility] Screening Comments: [id number]
== END 2024-04-29 09:28 | disposition home or self-care (01) ==
LOC: LBN 09:27
PROVIDERS: PCP Nurse Practitioner Family; Visit Provider Nurse Practitioner Women's Health
DX: Z12.39 Encounter for other screening for malignant neoplasm of breast (principal); Z01.419 Encounter for gynecological examination (general) (routine) without abnormal findings; Z12.4 Encounter for screening for malignant neoplasm of cervix; Z12.31 Encounter for screening mammogram for malignant neoplasm of breast
CPT/HCPCS: 88142

== ENCOUNTER 2024-04-30 02:18 | Outpatient (CLI) | payer OTHER, SELFPAY ==
--- NOTE | 2024-04-30 07:45 | DI.MAMMO_ITS ---
Exam(s) MAMMO SCREENING EXAM: MAMMO SCREENING CLINICAL HISTORY: screening. TECHNIQUE: Bilateral full field digital CC and MLO mammographic images were obtained with 3D tomosyn thesis and utilizing computer aided detection (CAD). COMPARISON: Prior mammograms were reviewed. FINDINGS: There has been no significant change in the appearance and distribution of the fibroglandular tissue. There are no new spiculated masses nor malignant appearing microcalcification groups. There is no significant architectural distortion nor skin thickening-retraction. IMPRESSION: No radiographic evidence of malignancy. BI-RADS Category 1 - Negative Breast Density - Category B - Scattered areas of fibroglandular density Breast density Category C or D implies that the patient has dense breast tissue. Dense breast tissue can make it harder to find cancer on a mammogram. Dense breast tissue is also associated with an incr eased risk of breast cancer. This information about the result of the mammogram report was provided to the patient to raise their awareness. Use this report when you speak with the patient about their risks for breast cancer, which includes their family history. At that time, you may recommend additional screening tests (Ultrasoun d or MRI) as these tests may add significant information. A negative radiographic report should not delay biopsy if a dominant or clinically suspicious mass is present. Up to ten percent of cancers are not identified on mammography. A negative report may reinforce clinical impression. Adenosis and dense breasts may obscure an underlying neoplasm. False positive reports average 6 to 10%. Patient will receive a letter notifying them of these results.
== END 2024-04-30 02:38 ==
LOC: DI 02:19
PROVIDERS: PCP Nurse Practitioner Family; Visit Provider Nurse Practitioner Women's Health
DX: Z12.31 Encounter for screening mammogram for malignant neoplasm of breast (principal)
CPT/HCPCS: 77063; 77067

== ENCOUNTER 2024-06-20 22:54 | Emergency (ER) | payer OTHER, SELFPAY ==
--- NOTE | 2024-06-20 22:45 | RT.EKG_ITS ---
APPROVED REPORT Exam: Resting ECG Reason for Exam: abd pain Patient Location: E HR:82 bpm ECG Measurements Heart Rate 82 AXIS MD 178 P 19 QRSd 86 QRS -8 QT 409 T 59 QTc 479 Conclusion Sinus rhythm...normal P axis, V-rate 60- [address] segment or T wave abnormalities to suggest occlusive ME
[2024-06-20 22:53] VITALS: BP 143/65; PULSE 87; RESP 18; O2SAT 95
--- NOTE | 2024-06-20 23:00 | DI.CT_ITS ---
Exam(s) CT ABDOMEN PELVIS W EXAM: CT ABDOMEN PELVIS W CLINICAL HISTORY: epigastric abd pain + vomiting TECHNIQUE: Imaging Protocol: Axial computed tomography images with coronal and sagittal reformatted images were created and reviewed. CONTRAST MATERIAL: Intravenous: Omnipaque 350 Contrast volume:85 mL Oral: No COMPARISON: CT CT CHEST WO from 04/20/2022 FINDINGS: ABDOMEN: Lung Bases: Normal where visualized. Liver: Normal density. No measurable mass. Portal, Superior Mesenteric, and Splenic Veins: Unremarkable. Gallbladder and Biliary Tract: Status post cholecystectomy. There is mild intra and extrahepatic mireille iary ductal dilatation. The common duct measures 1.2 cm in diameter. This likely reflects the post cholecystectomy state. Pancreas: Normal density, no abnormal calcifications or inflammatory process. Spleen: Normal. Adrenals: No masses seen. Kidneys: Normal size, contour and axis. No radiodense stones or obstructive uropathy. No masses seen. IVC: Note is made of a retroaortic left renal vein. Abdominal Aorta: Abdominal portion non-dilated. Atherosclerotic calcification is present. Bowel: There is diverticulosis of the colon without evidence of acute diverticulitis. There is no ev idence of bowel obstruction. There is no evidence of an appendicitis. There is mild thickening seen in the distal stomach. This may be due to a poor distension but gastritis cannot be excluded. Peritoneal Cavity: No ascites, collection or mesenteric inflammatory response. No free air. Lymph Nodes: Within normal limits. Bones: Within normal limits for the patient's age. Soft Tissues: Unremarkable. PELVIS: Bladder: Symmetric distention, no gross wall thickening. Reproductive Organs: There are bilateral ovarian cysts. The largest measures 2.4 cm on the left ovar y. There is a 2 cm simple cyst on the right ovary. Lymph Nodes: Within normal limits. Bones: Within normal limits for the patient's age. IMPRESSION: 1. There is mild thickening of the wall of the distal stomach. This may be due to poor distension bu t nonspecific gastritis cannot be excluded. Please correlate clinically. 2. Otherwise, no acute abdominal pelvic process. RADIATION DOSE DELIVERED: 679.33mGy.cm Total DLP DATA REPOSITORY: All CT scans at this facility are submitted to the National Radiology Data Registry (NRDR) Dose Index Registry (DIR) with the [employer] [employer] ([employer]). RADIATION OPTIMIZATION: All CT scans at this facility use at least one of these dose optimization te chniques: automated exposure control; mA and/or kV adjustment per patient size (includes targeted exa ms where dose is matched to clinical indication); or iterative reconstruction.
[2024-06-20 23:02] VITALS: O2SAT 95
[2024-06-20 23:04] VITALS: BP 143/65; PULSE 85; PULSE 88; RESP 17; O2SAT 94
--- NOTE | 2024-06-20 23:07 | W.ED.GENAD ---
Discharge Plan Disposition Patient Disposition: Home Condition: Good Discharge Details Clinical Impression: COVID-19, Vomiting, Hyperbilirubinemia, Abnormal transaminases Primary Care Provider: Panfilo Fagan ED Provider: Odalis Power Home Meds and New Rx's Prescriptions: New metoclopramide HCl [Reglan] 5 mg tablet 5 mg PO BID Qty: 10 0RF Rx Instructions: administer 30 minutes before meals Continued albuterol sulfate 90 mcg/actuation HFA aerosol inhaler 2 puff inhalation Q6H PRN (Reason: shortness of breath or wheezing) Qty: 8.5 3RF levothyroxine 50 mcg tablet 50 mcg PO DAILY Qty: 90 4RF Discontinued loratadine [Claritin] 10 mg tablet 10 mg PO DAILY Qty: 90 3RF tirzepatide 7.5 mg/0.5 mL pen injector 7.5 mg subcut QWEEK Qty: 6 3RF Discharge Instructions Instructions: Jaundice, Adult (DC), COVID-19 ED, Nausea and Vomiting, Adult ED Additional Instructions: Ibuprofen over the counter for pain; follow the directions on the bottle. Avoid tylenol. Metoclopramide up to twice a day as needed for nausea. Call your primary care doctor today to schedule an appointment to be seen within the next 48 hours to follow up on your visit here. They will likely want to repeat your bloodwork to recheck your liver tests. At that visit mention that your blood pressure was high here in the ED, and that some ovarian cysts were seen on your CT scan (this is an incidental finding that is likely not related to your symptoms today). Return to the emergency department for new or worsening symptoms including if your abdominal pain returns, you cannot keep down fluids, your eyes or skin look yellow, if you feel worse, develop a fever or difficulty breathing, or if you have any other concerns. Referrals: Panfilo Fagan, [employer] [Primary Care Provider] - HPI General Mode of arrival: EMS. Date/Time Provider Initiated Documentation: 06/20/24 23:04. Limitations to Documentation: no limitations. Information obtained by: patient and EMS. HPI Narrative: 64yo F with hx GERD, asthma, s/p cholecystectomy, presenting for acute upper abdominal pain. [place] generally unwell today, tired, body aches. This evening woke suddenly from sleep with severe upper abdominal pain, vomitted x 1 nonbloody nonbilious. Called EMS. Pain began to ease after vomiting and is currently mild, 3/10, dull, constant, located in the epigastrium. No chest pain or shortness of breath. No lightheadedness. No lower abdominal pain, constipation, or diarrhea. No dysuria or hematuria. No flank pain or back pain. No fevers at home. Started semaglutide recently, last dose on Monday. COVID +. Related Data Home Medications ?Medication ?Instructions ?Recorded ?Confirmed albuterol sulfate 90 mcg/actuation 2 puff inhalation Q6H PRN 12/13/23 06/20/24 aerosol inhaler shortness of breath or wheezing #8.5 grams levothyroxine 50 mcg tablet 50 mcg PO DAILY #90 tabs 01/04/24 06/20/24 metoclopramide HCl 5 mg tablet 5 mg PO BID #10 tabs 06/21/24 (Reglan) Previous Rx's ?Medication ?Instructions ?Recorded albuterol sulfate 90 mcg/actuation 2 puff inhalation Q6H PRN 12/13/23 aerosol inhaler shortness of breath or wheezing #8.5 grams levothyroxine 50 mcg tablet 50 mcg PO DAILY #90 tabs 01/04/24 metoclopramide HCl 5 mg tablet 5 mg PO BID #10 tabs 06/21/24 (Reglan) Allergies Allergy/AdvReac Type Severity Reaction Status Date / Time morphine Allergy Severe skin rash Verified 04/29/24 09:00 povidone-iodine (From Allergy Severe red rash Verified 04/29/24 09:00 Betadine) for days soap (From Betadine) Allergy Severe red rash Verified 04/29/24 09:00 for days General Stated Complaint: Abd Prob TASH: 3 Review of Systems Narrative: see HPI Exam Narrative Exam Narrative: General: Alert, well appearing, well nourished, in no acute distress. Head: Normocephalic, atraumatic Neck: Trachea midline, ?Neck supple. ENT: ?MMM.? No oropharygeal lesions or exudate. Cardiac: ?RRR, no murmurs appreciated Resp: No respiratory distress. CTAB. Abd: ?Soft, non-distended. Epigastrium TTP with no rebound or guarding. No RUQ tenderness. Negative Soler's. : ?No suprapubic tenderness. No CVA tenderness. Extremities: ?No deformities.? No peripheral edema. Neurologic: GCS 15. ? Moves all extremities freely against gravity Course Vital Signs Vital signs: Vital Signs Pulse 87 06/20/24 22:53 Respiratory Rate 18 06/20/24 22:53 Blood Pressure 143/65 H 06/20/24 22:53 Pulse Oximetry 95 06/20/24 22:53 Pulse 87 06/20/24 22:53 Respiratory Rate 18 06/20/24 22:53 Respiratory Effort Normal 06/20/24 23:04 Blood Pressure 143/65 H 06/20/24 22:53 Blood Pressure Position Sitting 06/20/24 22:53 Pulse Oximetry 95 06/20/24 22:53 Oxygen Delivery Method Room Air 06/20/24 22:53 Oxygen Flow Rate 0 06/20/24 22:53 Pain Level 3 06/20/24 22:53 Medical Decision Making 64yo F with hx GERD, asthma, s/p cholecystectomy, presenting for acute upper abdominal pain. COVID +, pt recently started semaglutide. Today felt generally unwell, tired, body aches, then woke with severe upper abdominal pain and vomited x 1. This seemed to improve the abdominal pain which is currently mild. Slightly hypertensive on arrival, vital signs otherwise reassuring. Mild epigastric tenderness on exam with no rebound or guarding. Symptoms may be 2/t COVID however broad differential in this 64 year old female. Less likely ACS; will get EKG and troponins. Biliary pathology also less likely post cholecystectomy though post-cholecystectomy syndrome possible. No lower abdominal pain/pelvic pain to suggest ovarian torsion or uterine pathology. Will evaluate for acute intrabdominal process with CT imaging. Given IV tylenol and toradol for pain; pt denies nausea currently. -EKG on arrival SR, appropriate intervals, no ST segment or T wave abnormalities to suggest occlusive AR. -Labs reviewed as below, CBC reassuring with no leukocytosis or anemia, lipase normal (unlikely pancreatitis), lactate normal, TSH normal, coags normal, HS troponin normal x 2. UA negative for infection. Respiratory viral swab + for COVID CMP with mild hyperbilrubinemia at 1.4 (conjugated bili elevated at 0.6) with mild elevations in AST/ALT/ALP (124, 84, 181). Acute hepatitis panel sent, serum acetaminophen negative. -CT independently reviewed; no obstruction or free fluid on my view. Radiology read below with no acute findings, incidental ovarian cysts. On reassessment she reports feeling much better. Pain and nausea have entirely resolved. Repeat vital signs normal. I do not have a firm explanation for her mild hyperbilirubinemia and transaminitis (? Covid), however her marked improvement in symptoms is reassuring and I have no indication for hospitalization or surgical consultation Should her symptoms return would consider RUQ US and repeat bloodwork. As she is feeling well now, appropriate for close PCP followup and repeat bloodwork on an outpatient basis. Advised symptomatic treatment at home (prescribed short course of reglan for nausea) and followup with her PCP within the next 48 hours, close return precautions. Discharged home; discharge instructions and return precautions were reviewed with patient who verbalized understanding. All questions were answered and she is in full agreement with the plan. Imaging Data Radiologic Study: Imaging: CT Scan Radiologist's impression: IMPRESSION: 1. No acute finding. 2. Suggestion of 3 cm left and 2.8 cm right ovarian cyst suggested. Lab Data Lab results reviewed: Yes I reviewed the patient's lab results. Labs: Laboratory Tests Range/Units 06/20/24 06/20/24 06/20/24 22:58 23:05 23:45 WBC (4.4-10.8) 10^3/uL 8.12 RBC (3.93-5.22) 10^6/uL 5.23 H Hgb (11.2-15.7) g/dL 13.4 Hct (36.0-46.0) % 39.9 MCV (80-95) fL 76 L MCH (27.0-33.0) pg 25.6 L MCHC (32.0-36.0) % 33.6 RDW (11.7-14.6) % 13.7 Plt Count (130-400) 10^3/uL 270 MPV (8.0-11.0) fL 9.3 Immature Gran % % 0.4 Neutrophils % % 81.1 Lymphocytes % % 9.0 Monocytes % % 8.7 Eosinophils % % 0.1 Basophils % % 0.7 Nucleated RBC % (0.0-0.3) % 0.0 Absolute Neutrophils (1.2-6.7) 10^3/uL 6.58 Absolute Lymphocytes (1.2-3.4) 10^3/uL 0.73 L Absolute Monocytes (0.1-0.8) 10^3/uL 0.71 Absolute Eosinophils (0.0-0.7) 10^3/uL 0.01 Absolute Basophils (0.0-0.2) 10^3/uL 0.06 PT (9.1-11.1) sec 10.6 INR (0.9-1.1) 1.1 APTT (23.6-32.8) sec 30.7 VBG Lactate (0.6-1.4) mmol/L 1.0 Sodium (136-145) mmol/L 142 Potassium (3.5-5.1) mmol/L 3.4 L Chloride (98-107) mmol/L 104 Carbon Dioxide (21.0-32.0) mmol/L 22.4 Anion Gap (3-11) mmol/L 15.6 H BUN (7-18) mg/dL 9 Creatinine (0.55-1.02) mg/dL 0.8 Est GFR (CKD-EPI 2020) (mL/min/1.73m2) 83.26 Glucose (74-106) mg/dL 110 H Calcium (8.5-10.1) mg/dL 9.2 Magnesium (1.8-2.4) mg/dL 2.1 Total Bilirubin (0.2-1.0) mg/dL 1.39 H Conjugated Bilirubin (0.0-0.2) mg/dL 0.6 H AST (15-37) U/L 124 H ALT (14-59) U/L 85 H Alkaline Phosphatase (46-116) U/L 181 H Troponin I (<or=51) ng/L 4 Total Protein (6.4-8.2) g/dL 7.7 Albumin (3.4-5.0) g/dL 3.7 Lipase (16-77) U/L 49 TSH (0.36-3.74) uIU/mL 0.49 Urine Color (Yellow) Yellow Urine Clarity (Clear) Clear Urine pH (5-8) 6.5 Ur Specific [place] (1.005-1.025) 1.010 Urine Protein (Neg-Trace) mg/dL Negative Urine Ketones (Negative) mg/dL Negative Urine Blood (Negative) Negative Urine Nitrite (Negative) Negative Urine Bilirubin (Negative) Negative Urine Urobilinogen (Up to 0.2) mg/dL 1.0 H Ur Leukocyte Esterase (Negative) Negative Urine Glucose (Negative) mg/dL Negative Acetaminophen (10-30) ug/mL < 2 COVID-19 Source Nasopharynx SARS-CoV-2 (PCR) (Negative) Positive A Influenza Type A (PCR) (Negative) Negative Influenza Type B (PCR) (Negative) Negative RSV (PCR) (Negative) Negative Range/Units 06/21/24 00:34 WBC (4.4-10.8) 10^3/uL RBC (3.93-5.22) 10^6/uL Hgb (11.2-15.7) g/dL Hct (36.0-46.0) % MCV (80-95) fL MCH (27.0-33.0) pg MCHC (32.0-36.0) % RDW (11.7-14.6) % Plt Count (130-400) 10^3/uL MPV (8.0-11.0) fL Immature Gran % % Neutrophils % % Lymphocytes % % Monocytes % % Eosinophils % % Basophils % % Nucleated RBC % (0.0-0.3) % Absolute Neutrophils (1.2-6.7) 10^3/uL Absolute Lymphocytes (1.2-3.4) 10^3/uL Absolute Monocytes (0.1-0.8) 10^3/uL Absolute Eosinophils (0.0-0.7) 10^3/uL Absolute Basophils (0.0-0.2) 10^3/uL PT (9.1-11.1) sec INR (0.9-1.1) APTT (23.6-32.8) sec VBG Lactate (0.6-1.4) mmol/L Sodium (136-145) mmol/L Potassium (3.5-5.1) mmol/L Chloride (98-107) mmol/L Carbon Dioxide (21.0-32.0) mmol/L Anion Gap (3-11) mmol/L BUN (7-18) mg/dL Creatinine (0.55-1.02) mg/dL Est GFR (CKD-EPI 2020) (mL/min/1.73m2) Glucose (74-106) mg/dL Calcium (8.5-10.1) mg/dL Magnesium (1.8-2.4) mg/dL Total Bilirubin (0.2-1.0) mg/dL Conjugated Bilirubin (0.0-0.2) mg/dL AST (15-37) U/L ALT (14-59) U/L Alkaline Phosphatase (46-116) U/L Troponin I (<or=51) ng/L < 4 Total Protein (6.4-8.2) g/dL Albumin (3.4-5.0) g/dL Lipase (16-77) U/L TSH (0.36-3.74) uIU/mL Urine Color (Yellow) Urine Clarity (Clear) Urine pH (5-8) Ur Specific [place] (1.005-1.025) Urine Protein (Neg-Trace) mg/dL Urine Ketones (Negative) mg/dL Urine Blood (Negative) Urine Nitrite (Negative) Urine Bilirubin (Negative) Urine Urobilinogen (Up to 0.2) mg/dL Ur Leukocyte Esterase (Negative) Urine Glucose (Negative) mg/dL Acetaminophen (10-30) ug/mL COVID-19 Source SARS-CoV-2 (PCR) (Negative) Influenza Type A (PCR) (Negative) Influenza Type B (PCR) (Negative) RSV (PCR) (Negative) Quality:SDOH Health Related Social Needs: No Data to Display PFSH All Active Problems (Updated 06/21/24 @ 01:36 by Odalis Power MD) Abnormal transaminases (Acute) Hyperbilirubinemia (Acute) Vomiting (Acute) COVID-19 (Acute) Immunization due (Acute) Thyroid nodule (Acute) Thyromegaly (Acute) Lymphocytic thyroiditis (Acute) Pulmonary nodule (Acute) Chronic rhinitis (Acute) Vasovagal syncope (Acute) Chronic cough (Acute) Migraine (Chronic) Bowel dysfunction (Acute 03/11/13) Diverticulosis of colon without diverticulitis (Acute 01/14/14) Gastroesophageal reflux disease (Acute 02/19/13) Multinodular goiter (Acute 02/19/13) Medical History Right posterior tibial strain Cough Abnormal cervical Papanicolaou smear (03/11/13) Closed fracture of right ankle (10/05/16) Surgical History Status post cholecystectomy Status post tonsillectomy Tonsillectomy 20 yrs old Colonoscopy - MAC 01/14/14;[facility] [place];NEG Cholecystectomy (~1987) Family History Mother , Lung CA at age 70. Lung cancer Father , 72 Diabetes Heart disease Hyperlipidemia Aneurysm Brain Sister Heart disease Diabetes Sister Fibromyalgia Basal cell carcinoma Grandfather , 67 Alcohol abuse Heart disease Stomach cancer Grandfather , 84 Skin cancer Aneurysm Stomach Hiatal hernia Grandmother , 70 Alcohol abuse Lymphoma Grandmother , 62 Neoplasm STOMACH Stomach cancer Son Alcohol abuse Son Substance abuse Alcohol abuse Daughter Autoimmune disease Heart disease Social History Smoking/Tobacco Use Status: Never Second Hand Exposure: Yes Smoking risk assessment performed?: Yes Alcohol Intake: current Alcohol Intake frequency: holidays/special occasions only Alcohol type: wine and hard liquor Drug use: Never Substance use type: does not use Counseling given: No Counseling provided: none Caregiver/Support person: No Household members: spouse Housing: house Communication Needs: None Do you need help understanding health information?: Never Pets and animals: Yes Pets and animals: cat(s) and farm animals Sexually active: No Do you think of yourself as: straight/heterosexual Current gender identity: female What is your relationship status?: How often do you talk on the phone with friends or family?: decline to answer How often do you get together with friends or relatives?: once per week How often do you attend restorationist or jewish services?: decline to answer Do you belong to any clubs or organized social groups?: no Panel score (0-1 are the most socially isolated patients): 1 What type of physical activity do you participate in: walking Duration: 15-30 minutes/day Frequency: 3-4 times per week Sandy/Hinduism: No preference Special sandy needs: No Seatbelt use: sometimes Helmet use: Yes Helmet use: always Drive intox or ride w/intox bobtail driver: No Female Reproductive History Menstrual Menopause type: natural
[2024-06-20 23:10] VITALS: PULSE 82; RESP 15; O2SAT 92
[2024-06-20 23:11] LABS: Abs Immature Grans 0.03 10^3/uL (0.0-0.06); Absolute Basophil Count 0.06 10^3/uL (0.0-0.2); Absolute Eosinophil Count 0.01 10^3/uL (0.0-0.7); Absolute Lymphocyte Count 0.73 10^3/uL (1.2-3.4); Absolute Monocyte Count 0.71 10^3/uL (0.1-0.8); Absolute Neutrophil Count 6.58 10^3/uL (1.2-6.7); Basophils % 0.7 %; Eosinophils % 0.1 %; HCT 39.9 % (36.0-46.0); HGB 13.4 g/dL (11.2-15.7); Immature Grans % 0.4 %; MCH 25.6 pg (27.0-33.0); MCHC 33.6 % (32.0-36.0); MCV 76 fL (80-95); MPV 9.3 fL (8.0-11.0); Monocytes % 8.7 %; Neutrophils % 81.1 %; Platelet Count 270 10^3/uL (130-400); RBC 5.23 10^6/uL (3.93-5.22); RDW 13.7 % (11.7-14.6); RDW-SD 37.7 fL; WBC 8.12 10^3/uL (4.4-10.8)
[2024-06-20] MEDS: Ketorolac 15 MG/ML VIAL IVP (23:13)
[2024-06-20] MEDS: ACETAMINOPHEN 1,000 MG/100 ML BAG 400 MG IVPB (23:13)
[2024-06-20 23:15] VITALS: BP 151/62; PULSE 83; PULSE 84; RESP 18; O2SAT 92
[2024-06-20 23:36] LABS: ALT 85 U/L (14-59); AST 124 U/L (15-37); Albumin 3.7 g/dL (3.4-5.0); Alkaline Phosphatase 181 U/L (46-116); Anion Gap 15.6 mmol/L (3-11); BUN 9 mg/dL (7-18); Bilirubin, Total 1.39 mg/dL (0.2-1.0); CO2 22.4 mmol/L (21.0-32.0); CREATININE 0.8 mg/dL (0.55-1.02); Calcium 9.2 mg/dL (8.5-10.1); Chloride 104 mmol/L (98-107); Estimated GFR 83.26 (mL/min/1.73m2); Glucose 110 mg/dL (74-106); Lipase 49 U/L (16-77); Magnesium 2.1 mg/dL (1.8-2.4); Potassium 3.4 mmol/L (3.5-5.1); Sodium 142 mmol/L (136-145); TSH (W/Ref FT4) 0.49 uIU/mL (0.36-3.74); Total Protein 7.7 g/dL (6.4-8.2); Troponin I 4 ng/L (<or=51)
[2024-06-20] MEDS: Omnipaque 350 MG/ML 100 ML BTL IJ (23:44)
[2024-06-20] MEDS: Normal Saline - Diluent 50 ML VIAL IJ (23:44)
[2024-06-21 00:05] LABS: Influenza A PCR Negative (Negative); Influenza B PCR Negative (Negative); RSV PCR Negative (Negative)
[2024-06-21 00:07] LABS: COVID-19 PCR Positive (Negative)
[2024-06-21 00:11] LABS: Bilirubin Negative (Negative); Blood Negative (Negative); Clarity Clear (Clear); Glucose Negative (Negative); Ketones Negative (Negative); Leukocyte Esterase Negative (Negative); Nitrite Negative (Negative); pH 6.5 (5-8)
[2024-06-21 00:16] LABS: Source Nasopharynx
[2024-06-21 00:40] LABS: Bilirubin, Direct 0.6 mg/dL (0.0-0.2)
[2024-06-21] MEDS: Potassium Chloride Liquid 20 MEQ PKT PO (00:42)
[2024-06-21 00:44] LABS: Acetaminophen < 2 ug/mL (10-30); INR 1.1 (0.9-1.1); PTT Activated 30.7 sec (23.6-32.8); Prothrombin Time 10.6 sec (9.1-11.1)
--- NOTE | 2024-06-21 00:44 | DI.VRAD_ITS ---
PROCEDURE INFORMATION: Exam: CT Abdomen And Pelvis With Contrast Exam date and time: 06/20/2024 11:41 PM Age: 64 years old Clinical indication: Vomiting; Abdominal pain; Epigastric; Prior surgery; Surgery date: 6+ months; Surgery type: Cholecystectomy; Additional info: Epigastric abd pain + vomiting TECHNIQUE: Imaging protocol: Computed tomography of the abdomen and pelvis with contrast. Contrast material: OMNI 350; Contrast volume: 85 ml; Contrast route: INTRAVENOUS (IV); COMPARISON: CT CHEST WO 04/20/2022 8:30 AM FINDINGS: Liver: Normal. No mass. Gallbladder and biliary ducts: Status post cholecystectomy. Pancreas: Normal. No ductal dilation. Spleen: Normal. No splenomegaly. Adrenal glands: Normal. No mass. Kidneys and ureters: Normal. No hydronephrosis. Stomach and bowel: Colonic diverticula. No bowel obstruction. Appendix: No evidence of appendicitis. Intraperitoneal space: Unremarkable. No free air. No significant fluid collection. Vasculature: Unremarkable. No abdominal aortic aneurysm. Lymph nodes: Unremarkable. No enlarged lymph nodes. Urinary bladder: Unremarkable as visualized. Reproductive: Suggestion of 3 cm left and 2.8 cm right ovarian cyst suggested. Bones/joints: Unremarkable. No acute fracture. Soft tissues: Unremarkable. IMPRESSION: 1. No acute finding. 2. Suggestion of 3 cm left and 2.8 cm right ovarian cyst suggested. Dictated and Authenticated by: Floyd Awan MD. Ordering:ABDIRIZAK Jacobo MD
[2024-06-21 00:58] LABS: Troponin I < 4 ng/L (<or=51)
[2024-06-21 02:20] VITALS: BP 132/66; PULSE 70; O2SAT 96
[2024-06-21 19:20] LABS: Hepatitis A Antibody IgM Negative (Negative); Hepatitis B Core Antibody Negative (Negative); Hepatitis B surface Ag Negative (Negative); Hepatitis C Ab w Rflx HCV PCR Negative (Negative)
== END 2024-06-21 02:18 | disposition home or self-care (01) ==
PROVIDERS: Emergency Provider Student in an Organized Health Care Education/Training Program; PCP Nurse Practitioner Family
DX: U07.1 COVID-19 (principal); R11.10 Vomiting, unspecified; E80.6 Other disorders of bilirubin metabolism; E74.01 von Gierke disease; Z79.899 Other long term (current) drug therapy
CPT/HCPCS: 80053; 83690; 86704; 86709; 86803; 87340; 87637; 93005; 96365; 96375; 99285; 74177; 80329; 81003; 82248; 83605; 83735; 84443; 84484; 85025; 85610; 85730; 93010; 99284; J0131; J1885; J3490

== ENCOUNTER 2024-06-28 09:44 | Outpatient (CLI) | payer OTHER, SELFPAY ==
[2024-06-28 09:31] LABS: ALT 59 U/L (14-59); AST 26 U/L (15-37); Albumin 3.7 g/dL (3.4-5.0); Alkaline Phosphatase 127 U/L (46-116); Anion Gap 5.9 mmol/L (3-11); BUN 11 mg/dL (7-18); Bilirubin, Total 0.54 mg/dL (0.2-1.0); CO2 29.1 mmol/L (21.0-32.0); CREATININE 0.8 mg/dL (0.55-1.02); Calcium 9.3 mg/dL (8.5-10.1); Chloride 106 mmol/L (98-107); Estimated GFR 83.26 (mL/min/1.73m2); Glucose 89 mg/dL (74-106); Potassium 4.2 mmol/L (3.5-5.1); Sodium 141 mmol/L (136-145); Total Protein 7.9 g/dL (6.4-8.2)
== END 2024-06-28 09:45 | disposition home or self-care (01) ==
LOC: LBO 09:45
PROVIDERS: PCP Nurse Practitioner Family; Visit Provider Nurse Practitioner Family
DX: R74.8 Abnormal levels of other serum enzymes (principal); U07.1 COVID-19
CPT/HCPCS: 36415; 80053

== ENCOUNTER 2024-07-17 07:29 | Day surgery (SDC) | payer OTHER, SELFPAY ==
--- NOTE | 2024-07-16 17:49 | PDOC.DSDIS_ITS ---
Date of service: 07/17/24 Time of Service: 08:49 Discharge Plan Disposition Patient Disposition: Home Condition: Good Discharge Details Reason For Visit: screening colonoscopy Attending Provider: Jamey Arguello Primary Care Provider: Panfilo Fagan Home Meds and New Rx's Prescriptions: Continued albuterol sulfate 90 mcg/actuation HFA aerosol inhaler 2 puff inhalation Q6H PRN (Reason: shortness of breath or wheezing) Qty: 8.5 3RF tirzepatide 7.5 mg/0.5 mL pen injector 7.5 mg subcut QWEEK Qty: 6 3RF levothyroxine 50 mcg tablet 50 mcg PO DAILY Qty: 90 4RF Discharge Instructions Additional Instructions: Janett, it was very nice to see you today, and I hope you are comfortable during the colonoscopy. Your prep was excellent, and I could see everything fine. You have fairly extensive diverticulosis. Diverticula occurs when the muscular la linda of the colon wall weakens as we age. This causes small pockets or pouches to form. They are extremely common, and often times patients never have any symptoms from them. They can get infected or inflamed from time to time. This is typically experienced as pain in the abdomen more commonly on the left or lower portion, and we usually refer to that as diverticulitis. Frequently, this is treated with antibiotics. I hope you are is never bother you. With an otherwise negative screening colonoscopy today, and minimal risk factors for colorectal cancer, your next screening colonoscopy should be in 10 years. If you have any questions or need anything in the meantime, please do not hesitate to ask. 1. If tolerated, consume a soft, low fiber diet for 1-2 days. [address] not drive, drink alcohol, operate machinery, make critical decisions, or do activities that require coordination or balance for 24 hours. 3. Because air was put into your colon during the procedure, expelling air from your rectum (passing gas or farting) is normal. 4. You may not have a bowel movement for 1-3 days because of the colonoscopy prep. This is normal. 5. Go directly to the emergency room if you notice any of the following: Develop chills (warm to touch), or if you have a thermometer and your temperature is above 101 Difficulty breathing or difficultly swallowing Persistent vomiting Severe abdominal pain, other than gas cramps Severe chest pain Black, tarry stools Any bleeding ? exceeding one tablespoon 6. Call your physician if the site where your intravenous was started becomes red, swollen, painful, and warm to touch. 7. Your physician has reviewed your pre-procedure medications. Please continue to take those medications as previously ordered. You will be given specific information/education regarding any changes to your medications before leaving. Activity:: Activity as Tolerated Diet:: As Tolerated Discharge Orders Discharge Orders: Discharge Order (Routine); Ordered 07/16/24 Ordered By: Jamey Arguello DS: Diagnosis Discharge Diagnosis (1) Encounter for screening colonoscopy: Status: Acute Asessment and Plan: Diverticulosis; otherwise negative screening colonoscopy
--- NOTE | 2024-07-16 17:52 | W.COLOREPORT ---
Date of service: 07/17/24 Time of Service: 08:52 Colonoscopy Report Date of procedure: 07/17/24 Pre-op diagnosis general: screening colonoscopy Post-op diagnosis procedure note: other (Diverticulosis) Procedure: colonoscopy Surgeon: Jamey Arguello Anesthesia Type: General:No Airway Estimated blood loss (mL): 0 Pathology: none sent Complications: None Disposition: same day Indications: Janett is a 64 year old woman who needs her next screening colonsocopy Prep: Miralax/Dulcolax Procedure Start Time: 08:16 Procedure End Time: 08:33 Retraction Time: 8 Findings: Pandiverticulosis, but otherwise negative screening colonoscopy Procedure Description: After the induction of anesthesia, and with the patient in left lateral decubitus position, I began by performing an external anorectal exam.? There are some redundancy of perianal skin consistent with old hemorrhoid disease. I do not see any clinical features consistent with condyloma.?? Next, I performed a digital rectal exam.? I did not appreciate any abnormal findings.? Next, I advanced a colonoscope into the rectal vault.? I performed retroflexion.? This appeared normal.? Using insufflation, I then advanced the colonoscope beyond the rectal folds and into the sigmoid colon before advancing towards the cecum.? The quality of the prep was excellent.? There is diverticulosis involving all segments of the colon. The scope was noted to be in the cecum by identification of the ileocecal valve and appendiceal orifice.? I then began withdrawing the colonoscope using repeated irrigation as necessary for full evaluation of the colonic mucosa. ?Once the scope was withdrawn to the level of the rectum, great care was taken to examine portions of the rectal folds.? Finally, the scope was withdrawn and the patient was brought to the same-day surgery recovery unit as the anesthetic wore off. ?The findings and instructions were shared with the patient prior to discharge. [place] Bowel Prep [place] Bowel Prep Right Colon: 3 Left Colon: 3 Transverse Colon: 3 Total Score: 9
[2024-07-17] MEDS: Normal Saline Flush 10 ML SYR IV (07:40)
[2024-07-17 07:49] VITALS: BP 137/73; PULSE 70; RESP 16; TEMP 36.3; O2SAT 99
--- NOTE | 2024-07-17 07:58 | W.ANESPRE ---
General Info Date of Service Date Performed: 07/17/24 Height: 5 ft 3 in Weight: 79.8 kg Body Mass Index (BMI): 31.1 Surgical Procedure: Operation Date: 07/17/24 08:35 Proposed Procedure Side Surgeon p Colonoscopy Jamey Arguello MD Actual Procedure Side Surgeon p Colonoscopy Jamey Arguello MD Pre-Op Diagnosis Post-Op Diagnosis screening colonoscopy, hx of IBS-C Meds Allergies and Home Medications Allergies Allergy/AdvReac Type Severity Reaction Status Date / Time morphine Allergy Severe skin rash Verified 07/16/24 11:28 povidone-iodine (From Allergy Severe red rash Verified 07/16/24 11:28 Betadine) for days soap (From Betadine) Allergy Severe red rash Verified 07/16/24 11:28 for days Home Medication ?Medication ?Instructions ?Recorded albuterol sulfate 90 mcg/actuation 2 puff inhalation Q6H PRN 12/13/23 aerosol inhaler shortness of breath or wheezing #8.5 grams levothyroxine 50 mcg tablet 50 mcg PO DAILY #90 tabs 01/04/24 tirzepatide 7.5 mg/0.5 mL 7.5 mg (0.5 mL) subcut QWEEK #6 mL 06/26/24 subcutaneous pen injector Current Visit Medications: Current Medications Generic Name Dose Route Start Last Admin Trade Name Freq PRN Reason Stop Dose Admin IV Miscellaneous Supplies 1 each 07/17/24 06:00 Iv Access IV 07/17/24 23:59 DIRECTED NASIR Ondansetron HCl 4 mg 07/16/24 17:53 Ondansetron 4 Mg/2 Ml Vial IVP 08/15/24 17:52 Q4H PRN PRN Nausea / Vomiting Sodium Chloride 0 ml 07/17/24 06:00 07/17/24 07:40 Normal Saline Flush 10 Ml Syr IV 07/17/24 23:59 10 ml PRN PRN Administration Sodium Chloride 0 ml 07/17/24 06:00 Normal Saline 10 Ml Vial IJ 07/17/24 23:59 DIRECTED PRN Sterile Water 0 ml 07/17/24 06:00 Water,Injection,Sterile 10 Ml Vial IJ 07/17/24 23:59 DIRECTED PRN PFSH Active Problems Active Problems: Problem Status Onset Code Encounter for screening colonoscopy Acute Z12.11 Elevated liver enzymes Acute R74.8 Abnormal transaminases Acute R74.8 Hyperbilirubinemia Acute E80.6 Vomiting Acute R11.10 COVID-19 Acute U07.1 Immunization due Acute Z23 Thyroid nodule Acute E04.1 Thyromegaly Acute E01.0 Lymphocytic thyroiditis Acute E06.3 Pulmonary nodule Acute R91.1 Chronic rhinitis Acute J31.0 Vasovagal syncope Acute R55 Chronic cough Acute R05 Migraine Chronic G43.909 Bowel dysfunction Acute 03/11/13 K59.9 Diverticulosis of colon without diverticulitis Acute 01/14/14 K57.30 Gastroesophageal reflux disease Acute 02/19/13 K21.9 Multinodular goiter Acute 02/19/13 E04.2 Medical History Medical History (Updated 07/16/24 @ 17:50 by Jamey Arguello MD) COVID was in ER with dx 06/20/24. Symptoms resolved and negative test 06/24/24. Right posterior tibial strain Cough Abnormal cervical Papanicolaou smear (03/11/13) Closed fracture of right ankle (10/05/16) Surgical History Surgical History Status post cholecystectomy Status post tonsillectomy Tonsillectomy 20 yrs old Colonoscopy - MAC 01/14/14;[facility] [place] Cholecystectomy (~1987) Tobacco Smoking/Tobacco Use Status: Never Passive smoking exposure: No Second hand exposure: Yes Alcohol Alcohol Intake: current Alcohol intake frequency: holidays/special occasions only Alcohol type: wine and hard liquor Substance Use Substance use: Never Substance use type: does not use Counseling provided: none Vital Signs and Lab Results Vital Signs Most Recent Vital Signs in EMR: Most Recent Vital Signs Temp Pulse Resp BP Pulse Ox 36.3 C L 70 16 137/73 99 07/17/24 07:49 07/17/24 07:49 07/17/24 07:49 07/17/24 07:49 07/17/24 07:49 Lab Results Blood Type / Crossmatch: No Data to Display Complete Blood Count: White Blood Count 8.12 10^3/uL (4.4-10.8) 06/20/24 22:58 Red Blood Count 5.23 10^6/uL (3.93-5.22) H 06/20/24 22:58 Hemoglobin 13.4 g/dL (11.2-15.7) 06/20/24 22:58 Hematocrit 39.9 % (36.0-46.0) 06/20/24 22:58 Platelet Count 270 10^3/uL (130-400) 06/20/24 22:58 Venous Blood Lactate 1.0 mmol/L (0.6-1.4) 06/20/24 22:58 Complete Metabolic Panel: Sodium 141 mmol/L (136-145) 06/28/24 08:57 Potassium 4.2 mmol/L (3.5-5.1) 06/28/24 08:57 Chloride 106 mmol/L (98-107) 06/28/24 08:57 Carbon Dioxide 29.1 mmol/L (21.0-32.0) 06/28/24 08:57 BUN 11 mg/dL (7-18) 06/28/24 08:57 Creatinine 0.8 mg/dL (0.55-1.02) 06/28/24 08:57 Est GFR (CKD-EPI 2020) 83.26 (mL/min/1.73m2) 06/28/24 08:57 Magnesium 2.1 mg/dL (1.8-2.4) 06/20/24 22:58 Calcium 9.3 mg/dL (8.5-10.1) 06/28/24 08:57 Albumin 3.7 g/dL (3.4-5.0) 06/28/24 08:57 Glucose 89 mg/dL (74-106) 06/28/24 08:57 Liver Function Panel: Alanine Aminotransferase (ALT/SGPT) 59 U/L (14-59) 06/28/24 08:57 Aspartate Amino Transf (AST/SGOT) 26 U/L (15-37) 06/28/24 08:57 Coagulation Panel: INR International Normalized Ratio 1.1 (0.9-1.1) 06/20/24 22:58 Prothrombin Time 10.6 sec (9.1-11.1) 06/20/24 22:58 Activated Partial Thromboplast Time 30.7 sec (23.6-32.8) 06/20/24 22:58 Cardiac Panel: Troponin I < 4 ng/L (<or=51) 06/21/24 Arterial Blood Gas: No Data to Display Venous Blood Gas: No Data to Display Pancreas Panel: Lipase 49 U/L (16-77) 06/20/24 22:58 Thyroid Panel: Thyroid Stimulating Hormone (TSH) 0.49 uIU/mL (0.36-3.74) 06/20/24 22:58 Infectious Disease: Coronavirus (COVID-19)(PCR) Positive (Negative) A 06/20/24 23:05 Coronavirus 2019 Source Nasopharynx 06/20/24 23:05 Influenza Virus Type A (PCR) Negative (Negative) 06/20/24 23:05 Influenza Virus Type B (PCR) Negative (Negative) 06/20/24 23:05 Respiratory Syncytial Virus (PCR) Negative (Negative) 06/20/24 23:05 Hepatitis B Surface Antigen Negative (Negative) 06/20/24 22:58 Hepatitis C Antibody Negative (Negative) 06/20/24 22:58 Blood Cultures: No Data to Display Toxicology Panel: No Data to Display Imaging and Studies Imaging and Studies Study information below may be from another EMR and interpreted by another provider. Please see original notes in EMR for more complete details. EKG Summary: 06/20/24: Exam: Resting ECG Reason for Exam: abd pain Patient Location: E HR:82 bpm ECG Measurements Heart Rate 82 AXIS AZ 178 P 19 QRSd 86 QRS -8 QT 409 T59 QTc 479 Conclusion Sinus rhythm...normal P axis, V-rate 60- [address] segment or T wave abnormalities to suggest occlusive [place] I have reviewed and I agree with the emergency room physician's ECG interpretation. Echocardiogram Summary: 04/16/13: DATE: April 16, 2013 OUT-PATIENT ORDERING PHYSICIAN: HEIGHT: 5 FT 3 IN WEIGHT: 185 LBS BSA: 1.9 m2 STUDY INDICATIONS: Dyspnea on exertion, chest pain. FINDINGS: LEFT VENTRICLE/LVEF: Normal size and systolic function. Normal diastolic function. Estimated ejection fraction 64%. Pulmonary Function Summary: 04/23/21: Pulmonary Function Test Result Requesting Provider Sonali Interpretation Spirometry: There is no airflow limitation. There was not a significant decrease in FEV1 with methacholine administration. Lung Volumes: Lung volumes are normal. Diffusion Capacity: The diffusion is normal. Airway Pressure: Airways resistance is normal. Impression Normal pulmonary function test. Negative methacholine challenge test. Note: When compared to March 04, 2013 the FVC and FEV1 are slightly reduced however with normal limits accounting for age. Clinical Correlation therefore is recommended. Anesthesia Assessment and Plan Anesthesia History Personal History: No History of Anesthesia Complications Family History: No Family History of Anesthesia Complications Exercise Tolerance Exercise Tolerance: Metabolic Equivalents>4 Pertinent Negatives Pertinent Negatives: No Symptoms of GERD, No Major Cardiovascular Symptoms or Complaints and No Major Pulmonary Symptoms or Complaints Cardiac & Pulmonary Exam Cardiac Exam: Normal S1/S2 Heart Sounds Pulmonary Exam: Clear Bilateral Breath Sounds Implantable Cardiac Device Does patient have a Pacemaker or an ICD?: No Airway Exam Known Difficult Airway: No Mallampati Class: 2 Mouth Opening: Normal (> 3cm) Thyromental Distance: Greater than 3 cm Neck Range of Motion: Full ROM Neck Circumference: Normal Teeth Condition: Normal Dentition ASA Classification ASA Score: ASA 2 Emergency Case?: No NPO Status NPO Status: NPO Clears >2 hours, Solids >8 hours Anesthesia Plan Resuscitation Status: Full Code Anesthesia Technique: General Anesthesia Airway Planned: Natural Airway Monitors Used: Standard Monitors Preoperative Comments:: Notable thyroid nodule, palpated and mobile. Patient reports that she has not had GA since diagnosis.
[2024-07-17 08:10] VITALS: BMI 31.1
[2024-07-17 08:40] VITALS: BP 117/83; PULSE 77; RESP 16; TEMP 36.5; O2SAT 95
--- NOTE | 2024-07-17 08:52 | W.ANESPOSTOP ---
Postoperative Evaluation Date, Time and Location Date Performed: 07/17/24 Time Performed: 08:52 Patient Location: Day Surgery Unit Vital Signs Most Recent Imported Vital Signs: Most Recent Vital Signs Temp Pulse Resp BP Pulse Ox 36.5 C 77 16 117/83 95 07/17/24 08:40 07/17/24 08:40 07/17/24 08:40 07/17/24 08:40 07/17/24 08:40 Pain Score Most Recent Pain Score: Most Recent Pain Score Pain Level 0 07/17/24 08:40 Assessment Mental Status: Awake (Alert & Oriented to Patient Baseline) Airway and Respiratory Function: Patent airway with normal (patient baseline) respiratory exam Cardiovascular Function: Hemodynamically Stable Hydration Status: Adequately Hydrated Nausea & Vomiting: No Nausea or Vomiting Pain: Pt. Denies Any Pain Peripheral Nerve Block: Patient did not receive a nerve block
[2024-07-17 09:12] VITALS: BP 111/68; PULSE 69; RESP 18; TEMP 36.2; O2SAT 96
== END 2024-07-17 09:20 | disposition home or self-care (01) ==
LOC: SUR 07:30
PROVIDERS: PCP Nurse Practitioner Family; Visit Provider Surgery
PROC: 0DJD8ZZ Inspection of Lower Intestinal Tract, Via Natural or Artificial Opening Endoscopic (ICD-10-PCS; CPT 45378; principal; 2024-07-17 08:30)
DX: Z12.11 Encounter for screening for malignant neoplasm of colon (principal); K57.30 Diverticulosis of large intestine without perforation or abscess without bleeding
CPT/HCPCS: 45378; J2003; J2704

== ENCOUNTER 2025-04-23 08:45 | Outpatient (CLI) | payer OTHER, SELFPAY ==
[2025-04-23 08:22] LABS: Hemoglobin A1C 5.1 % (<5.7)
[2025-04-23 08:47] LABS: ALT 32 U/L (14-59); AST 19 U/L (15-37); Albumin 3.7 g/dL (3.4-5.0); Alkaline Phosphatase 92 U/L (46-116); Anion Gap 9.1 mmol/L (3-11); BUN 11 mg/dL (7-18); Bilirubin, Total 0.6 mg/dL (0.2-1.0); CO2 27.9 mmol/L (21.0-32.0); Calcium 8.8 mg/dL (8.5-10.1); Calculated LDL 163 mg/dL (<100); Chloride 105 mmol/L (98-107); Cholesterol 232 mg/dL (<200); Estimated GFR 101.42 (mL/min/1.73m2); Glucose 95 mg/dL (74-106); HDL Cholesterol 56 mg/dL (>or=50); Potassium 4.1 mmol/L (3.5-5.1); Sodium 142 mmol/L (136-145); Total Protein 7.5 g/dL (6.4-8.2); Triglyceride 65 mg/dL (<150)
== END 2025-04-23 08:46 | disposition home or self-care (01) ==
LOC: LBO 08:45
PROVIDERS: PCP Nurse Practitioner Family; Visit Provider Nurse Practitioner Family
DX: R74.8 Abnormal levels of other serum enzymes (principal); Z13.220 Encounter for screening for lipoid disorders; Z13.1 Encounter for screening for diabetes mellitus
CPT/HCPCS: 36415; 80053; 80061; 83036

== ENCOUNTER 2025-05-27 00:52 | Outpatient (CLI) | payer OTHER, SELFPAY ==
--- NOTE | 2025-05-27 07:43 | DI.MAMMO_ITS ---
Exam(s) MAMMO SCREENING EXAM: MAMMO SCREENING CLINICAL HISTORY: screening,z12.39 TECHNIQUE: Mammograms were interpreted according to the usual protocol including computer analysis with CAD system, tomosynthesis and C-view imaging. COMPARISON: 2016 through 2023 FINDINGS: The breasts are composed of scattered fibroglandular densities, Breast Density category B. No suspicious masses or suspicious microcalcifications are seen. No skin thickening or abnormal axillary lymph nodes are seen. There has been no significant change from prior exams. IMPRESSION: BI-RADS Category 1, Negative mammogram Yearly screening mammography is recommended. Breast Density - Category B - There are scattered areas of fibroglandular density. Breast density Category C or D implies that the patient has dense breast tissue. Dense breast tissue can make it harder to find cancer on a mammogram. Dense breast tissue is also associated with an increased risk of breast cancer. This information about the result of the mammogram report was provided to the patient to raise their awareness. Use this report when you speak with the patient about their risks for breast cancer, which includes their family history. At that time, you may recommend additional screening tests (Ultrasound or MRI) as these tests may add significant information. A negative radiographic report should not delay biopsy if a dominant or clinically suspicious mass is present. Up to ten percent of cancers are not identified on mammography. A negative report may reinforce clinical impression. Adenosis and dense breasts may obscure an underlying neoplasm. False positive reports average 6 to 10%. Patient will receive a letter notifying them of these results.
== END 2025-05-27 01:12 ==
LOC: DI 00:52
PROVIDERS: PCP Nurse Practitioner Family; Visit Provider Nurse Practitioner Women's Health
DX: Z12.31 Encounter for screening mammogram for malignant neoplasm of breast (principal); R92.323 Mammographic fibroglandular density, bilateral breasts
CPT/HCPCS: 77063; 77067

== ENCOUNTER 2025-06-16 07:10 | Day surgery (SDC) | payer OTHER, SELFPAY ==
[2025-06-16] VITALS (12 sets, daily range): BP systolic 92–149; BP diastolic 53–85; PULSE 57–72; RESP 12–121; TEMP 35.9–36.5; O2SAT 95–100; BMI 29.0
--- NOTE | 2025-06-16 07:16 | W.ANESPRE ---
General Info Date of Service Date Performed: 06/16/25 Height: 5 ft 4 in Weight: 76.912 kg Body Mass Index (BMI): 29.0 Surgical Procedure: Operation Date: 06/16/25 08:10 Proposed Procedure Side Surgeon p Partial Thyroidectomy/ Isthmusectomy Stefano Fallon MD Meds Allergies and Home Medications Allergies Allergy/AdvReac Type Severity Reaction Status Date / Time morphine Allergy Severe skin rash Verified 06/16/25 07:21 povidone-iodine (From Allergy Severe red rash Verified 06/16/25 07:21 Betadine) for days soap (From Betadine) Allergy Severe red rash Verified 06/16/25 07:21 for days Home Medication ?Medication ?Instructions ?Recorded albuterol sulfate 90 mcg/actuation 2 puff inhalation Q6H PRN 09/25/24 aerosol inhaler shortness of breath or wheezing #8.5 grams levothyroxine 50 mcg tablet 50 mcg PO DAILY #90 tabs 10/07/24 tirzepatide (weight loss) 10 10 mg (0.5 mL) subcut QWEEK #6 mL 10/31/24 mg/0.5 mL subcutaneous pen injector Current Visit Medications: Current Medications Generic Name Dose Route Start Last Admin Trade Name Freq PRN Reason Stop Dose Admin Ringer's Solution 1,000 mls @ 50 mls/hr 06/16/25 06:00 IV 07/13/25 23:59 INFUSION NASIR Tranexamic Acid/Sodium Chloride 1,000 mg in 100 mls @ 600 mls/hr 06/16/25 06:00 IVPB 06/16/25 23:59 PREOP NASIR IV Miscellaneous Supplies 1 each 06/16/25 06:00 Iv Access IV 07/13/25 23:59 DIRECTED NASIR Sodium Chloride 0 ml 06/16/25 06:00 Normal Saline Flush 10 Ml Syr IV 07/13/25 23:59 PRN PRN Sodium Chloride 0 ml 06/16/25 06:00 Normal Saline 10 Ml Vial IJ 07/13/25 23:59 DIRECTED PRN Sterile Water 0 ml 06/16/25 06:00 Water,Injection,Sterile 10 Ml Vial IJ 07/13/25 23:59 DIRECTED PRN PFSH Active Problems Active Problems: Problem Status Onset Code Obesity (BMI 30.0-34.9) Acute E66.811 Encounter for screening colonoscopy Acute Z12.11 Elevated liver enzymes Acute R74.8 COVID-19 Acute U07.1 Immunization due Acute Z23 Thyroid nodule Acute E04.1 Thyromegaly Acute E01.0 Lymphocytic thyroiditis Acute E06.3 Pulmonary nodule Acute R91.1 Chronic rhinitis Acute J31.0 Vasovagal syncope Acute R55 Chronic cough Acute R05 Migraine Chronic G43.909 Bowel dysfunction Acute 03/11/13 K59.9 Diverticulosis of colon without diverticulitis Acute 01/14/14 K57.30 Gastroesophageal reflux disease Acute 02/19/13 K21.9 Multinodular goiter Acute 02/19/13 E04.2 Medical History Medical History COVID was in ER with dx 06/20/24. Symptoms resolved and negative test 06/24/24. Right posterior tibial strain Cough Abnormal cervical Papanicolaou smear (03/11/13) Closed fracture of right ankle (10/05/16) Surgical History Surgical History Status post cholecystectomy Status post tonsillectomy Tonsillectomy 20 yrs old Colonoscopy - MAC (~07/2024) 01/14/14;[facility] [place];[facility] Cholecystectomy (~1987) Tobacco Smoking/Tobacco Use Status: Never Passive smoking exposure: Yes (Mother smoked all the years I lived at home. smoked unitl yr 2009) Second hand exposure: Yes Alcohol Alcohol Intake: current Alcohol intake frequency: holidays/special occasions only Alcohol type: wine and hard liquor Substance Use Substance use: Never Substance use type: does not use Counseling provided: none Imaging and Studies Imaging and Studies Study information below may be from another EMR and interpreted by another provider. Please see original notes in EMR for more complete details. EKG Summary: 06/20/24: Exam: Resting ECG Reason for Exam: abd pain Patient Location: E HR:82 bpm ECG Measurements Heart Rate 82 AXIS CO 178 P 19 QRSd 86 QRS -8 QT 409 T59 QTc 479 Conclusion Sinus rhythm...normal P axis, V-rate 60- [address] segment or T wave abnormalities to suggest occlusive [place] I have reviewed and I agree with the emergency room physician's ECG interpretation. Stress Test Summary: ETT Report PATIENT NAME: BLANCA HAGAN UNIT #: [id number] ADMITTING PROVIDER: RO RAUSCH PRIMARY CARE PROVIDER: MAGGIE KRAUSE DATE OF SERVICE: 04/05/13 : 1960 Physician: Emiliano/Timbo Tech: ARTI Hgt(inches): 63 Wgt(lbs): 180 History: Chest pains started late spring of this year. Initiated during activity. Worked up for acid reflux and pulmonary issues. Feals tired during episodes. Starts in right side of chest and progresses across chest to left. Family Hx: Father/Balloon angioplasty. Smoking Hx: Never. Exercise: None. Diabetes: Neg Hypertension: Neg BP(supine): 122/80 Cholesterol: 212 Tri HDL: 49 LDL: 144 Date: 02/21/13 Lipid meds: None. Troponin: Date: Other: HX T&A and cholicystectomy. Meds: Prilosec, Flovent. Protocol: Isak Max MPH: 4.2 % Grade: 16.0 Target HR 100%: 170 85%: 144 ETT ended at: 09:47 due to Fatigue, dyspnea, pt. request. Peak HR: 86 METS: 10.1 Physical examination: Lungs: LS Clear. Cor: Reg. No murmurs noted. Resting 12 lead EKG: SB, 58 BPM. No ectopy. RESULTS Arrhythmias: None detected. Angina: None. HR response: Normal. ASchieved 86% of target at 146 BPM. BP response: Normal. Max SBP 180. ST-T changes: 0.1 - 0.[address] changes V1-V6. MIBI SPECT images: Functional Capacity: Above average at 130. INTERPRETATION: No ischemic EKG changes. Negative for ischemia. Dictated by: RO RAUSCH Dictated:: <Electronically signed by RO RAUSCH> 05/12/13 2217 Transcribed Date: 04/05/13 Transcribed Time: 0751 By: [email or web address] This is privileged, confidential information, intended only for the provider named. Any use or distribution by any person other than this provider is strictly prohibited. If you receive this report in error, please notify us immediately at [phone] and return the original report to us at the address above. Thank you. Echocardiogram Summary: 04/16/13: DATE: April 16, 2013 OUT-PATIENT ORDERING PHYSICIAN: HEIGHT: 5 FT 3 IN WEIGHT: 185 LBS BSA: 1.9 m2 STUDY INDICATIONS: Dyspnea on exertion, chest pain. FINDINGS: LEFT VENTRICLE/LVEF: Normal size and systolic function. Normal diastolic function. Estimated ejection fraction 64%. Pulmonary Function Summary: 04/23/21: Pulmonary Function Test Result Requesting Provider Sonali Interpretation Spirometry: There is no airflow limitation. There was not a significant decrease in FEV1 with methacholine administration. Lung Volumes: Lung volumes are normal. Diffusion Capacity: The diffusion is normal. Airway Pressure: Airways resistance is normal. Impression Normal pulmonary function test. Negative methacholine challenge test. Note: When compared to March 04, 2013 the FVC and FEV1 are slightly reduced however with normal limits accounting for age. Clinical Correlation therefore is recommended. Anesthesia Assessment and Plan Anesthesia History Personal History: No History of Anesthesia Complications Family History: No Family History of Anesthesia Complications Exercise Tolerance Exercise Tolerance: Metabolic Equivalents>4 Pertinent Negatives Pertinent Negatives: No Symptoms of GERD, No Major Cardiovascular Symptoms or Complaints and No Major Pulmonary Symptoms or Complaints Cardiac & Pulmonary Exam Cardiac Exam: Normal S1/S2 Heart Sounds Pulmonary Exam: Clear Bilateral Breath Sounds Implantable Cardiac Device Does patient have a Pacemaker or an ICD?: No Airway Exam Known Difficult Airway: No Previous Airway Comments:: Known Goiter Mallampati Class: 2 Mouth Opening: Normal (> 3cm) Thyromental Distance: Greater than 3 cm Neck Range of Motion: Full ROM Neck Circumference: Normal Teeth Condition: Normal Dentition Airway Comments: Reports feeling pressure of the thyroid nodule, feels like it makes her cough ASA Classification ASA Score: ASA 2 Emergency Case?: No NPO Status NPO Status: NPO Clears >2 hours, Solids >8 hours Anesthesia Plan Resuscitation Status: Full Code Anesthesia Technique: General Anesthesia Airway Planned: Endotracheal Tube Monitors Used: Standard Monitors Preoperative Comments:: Notable thyroid nodule, palpated and mobile. Patient reports that she has not had an ETT since diagnosis.
--- NOTE | 2025-06-16 07:40 | W.PM.DSUDISC ---
Date of service: 06/16/25 Discharge Plan Disposition Patient Disposition: Home Condition: Good Discharge Details Reason For Visit: Thyroid isthmusectomy Attending Provider: Stefano Fallon Primary Care Provider: Panfilo Fagan Home Meds and New Rx's Prescriptions: No Action albuterol sulfate 90 mcg/actuation HFA aerosol inhaler 2 puff inhalation Q6H PRN (Reason: shortness of breath or wheezing) Qty: 8.5 3RF levothyroxine 50 mcg tablet 50 mcg PO DAILY Qty: 90 4RF tirzepatide (weight loss) 10 mg/0.5 mL pen injector 10 mg subcut QWEEK Qty: 6 3RF Discharge Instructions Additional Instructions: No lifting greater than 20 pounds for 72 hours. No straining for 72 hours. May shower with dressing on, remove dressing tomorrow after shower and do not replace May shower and get wound wet and pat dry in 48 hours Call with swelling, or signs of infection such as redness, increased warmth, swelling, or increasing discomfort No driving for 72 hours My cell phone number is [phone] if you have any questions or concerns. If you cannot reach me and you feel this is an emergency, please call 911 or proceed to the emergency room Stand Alone Forms: Anesthesia Discharge Inst., Sarita Marin ([facility]) Referrals: Stefano Fallon MD [ [facility] STAFF PHYSICIAN, ENT Surgical] - 07/15/25 8:00 am Diet:: As Tolerated Discharge Orders Discharge Orders: Discharge Order (Routine); Ordered 06/16/25 Ordered By: Stefano Fallon
[2025-06-16] MEDS: Lactated Ringers 1,000 ML 50 ML IV (07:52)
[2025-06-16] MEDS: TRANEXAMIC ACID/SOD. CHL. 1,000 MG/100 ML BAG 600 MG IVPB (08:26)
[2025-06-16] MEDS: Bupivacaine 0.5% Pres-Free W/EPI 30 ML VIAL (08:48)
[2025-06-16] MEDS: Bacitracin 1 PACKET (08:48)
--- NOTE | 2025-06-16 10:00 | THYROIDTOT_PTH ---
PATIENT: Janett Schroeder LOC: [facility] U#:[id number] AGE/SX: 65/F ROOM: RE06/16/[address]: Stefano Fallon MD : 1960 BED: DIS: 06/16/2025 SPEC #: [id number] RECD: 06/16/25 12:22 STATUS: TIGRE REQ #: [id number] LANG: 06/16/25 10:[address]: Stefano Fallon DEPT: Surgical Specimen RECD BY: Viktoria Fishman ENTERED: 06/16/25 12:23 SP TYPE: THYROIDTOT OTHR DR: Panfilo Fagan, GRAY Tissues: 1 - THYROID BIOPSY(TOTAL/LOBE) Procedures: GROSS AND MICRO LEVEL 5 Comments: [id number]
[2025-06-16] MEDS: Gelatin SPONGE 12-7 MM PKT 1 EACH TP (10:17)
--- NOTE | 2025-06-16 10:46 | ROE_ITS ---
Operative Note Operative Note PRE-OP DIAGNOSIS: Isthmus nodule, symptomatic. Lymphocytic thyroiditis POST-OP DIAGNOSIS: same PROCEDURE: Partial isthmusectomy, thyroid SURGEON: Stefano Fallon MOLDED GOODS OPERATOR: Jammie Abdullahi Refer to Anesthesia Record ESTIMATED BLOOD LOSS: 200 PATHOLOGY: other (Thyroid nodule, sent piecemeal) Patient was transported to: PACU Patient's condition: stable Indications: Patient with an isthmus nodule noticed symptomatic. Options were explained to the patient regarding further management. She elected undergo debridement procedure. Risks and benefits of the surgery were discussed. Consent was obtained. H&P was reviewed. There have been no changes. Findings: Hypervascular thyroid, large isthmus thyroid nodule, multiple nodules throughout the remainder of the thyroid Procedure Description: After obtaining an adequate level of general endotracheal anesthesia the patient was positioned with her head slightly extended and prepped and draped in appropriate fashion. A thyroidectomy incision was outlined over the nodule, and injected with 0.5% Marcaine with 1/100,000 epinephrine. Sharp dissection was continued down through the skin and subcutaneous fat, and the anterior platysma was divided. The anterior strap muscles were encountered and divided transversely. This exposed the thyroid nodule. The thyroid nodule was progressively skeletonized and found to be hypervascular with no obvious delineation between the edges of the thyroid nodule and the lobes of the thyroid. Electrocautery set on 15 and 15 was used to incise the thyroid to the left side thyroid nodule, and as this was performed, the thyroid nodule ruptured, the thyroid nodule was removed piecemeal. Because of the degree of oozing from the site, decision was made to not completely the rest of the isthmusectomy, but after controlling bleeding including using some Gelfoam, Valsalva failed to induce any further bleeding. As such, decision was made to close the wound which was done in 2 layers, consisting of the closure of the strap muscles with 3.0 Monocryl suture placed in interrupted fashion and then subcuticular closure including the platysma which was done with 3 .0 Monocryl in an interrupted fashion. Valsalva failed to induce any further bleeding. Pressure was held after sterile dressing was applied while the patient was awoken. She was then transported to the recovery room in stable condition. Her voice was strong. She had a good air leak around the tube prior to pulling it. I was present for the entire case. Date of Procedure: 06/16/25
--- NOTE | 2025-06-16 10:54 | PDOC.DSDIS_ITS ---
Date of service: 06/16/25 Discharge Plan Disposition Patient Disposition: Home Condition: Good Discharge Details Reason For Visit: Thyroid isthmusectomy Attending Provider: Stefano Fallon Primary Care Provider: Panfilo Fagan Home Meds and New Rx's Prescriptions: No Action albuterol sulfate 90 mcg/actuation HFA aerosol inhaler 2 puff inhalation Q6H PRN (Reason: shortness of breath or wheezing) Qty: 8.5 3RF levothyroxine 50 mcg tablet 50 mcg PO DAILY Qty: 90 4RF tirzepatide (weight loss) 10 mg/0.5 mL pen injector 10 mg subcut QWEEK Qty: 6 3RF Discharge Instructions Additional Instructions: No lifting for 72 hours. No straining for 72 hours. Do not bend over at the waist for 72 hours May shower with dressing on, remove dressing tomorrow after shower and do not replace May shower and get wound wet and pat dry in 48 hours Call with swelling, or signs of infection such as redness, increased warmth, swelling, or increasing discomfort No driving for 72 hours My cell phone number is [phone] if you have any questions or concerns. If you cannot reach me and you feel this is an emergency, please call 911 or proceed to the emergency room. Ibuprofen and/or Tylenol for pain control. Stand Alone Forms: Anesthesia Discharge InstSarita Miller ([facility]) Referrals: Stefano Fallon MD [ [facility] STAFF PHYSICIAN, [facility]] - 07/15/25 8:00 am Diet:: As Tolerated Discharge Orders Discharge Orders: Discharge Order (Routine); Ordered 06/16/25 Ordered By: Stefano Fallon
--- NOTE | 2025-06-16 12:17 | W.ANESPOSTOP ---
Postoperative Evaluation Date, Time and Location Date Performed: 06/16/25 Time Performed: 11:15 Patient Location: Day Surgery Unit Vital Signs Most Recent Imported Vital Signs: Most Recent Vital Signs Temp Pulse Resp BP Pulse Ox 36.1 C L 57 L 12 126/58 L 99 06/16/25 11:41 06/16/25 11:41 06/16/25 11:41 06/16/25 11:41 06/16/25 11:41 Pain Score Most Recent Pain Score: Most Recent Pain Score Pain Level 3 06/16/25 11:41 Assessment Mental Status: Awake (Alert & Oriented to Patient Baseline) Airway and Respiratory Function: Patent airway with normal (patient baseline) respiratory exam Cardiovascular Function: Hemodynamically Stable Hydration Status: Adequately Hydrated Nausea & Vomiting: No Nausea or Vomiting Pain: Pain is tolerable per patient Peripheral Nerve Block: Patient did not receive a nerve block
== END 2025-06-16 12:55 | disposition home or self-care (01) ==
PROVIDERS: PCP Nurse Practitioner Family; Visit Provider Otolaryngology
PROC: (CPT 60210; principal; 2025-06-16 08:00)
DX: E06.3 Autoimmune thyroiditis (principal); K21.9 Gastro-esophageal reflux disease without esophagitis; R05.3 Chronic cough; G43.909 Migraine, unspecified, not intractable, without status migrainosus
CPT/HCPCS: 60210; 88307; J0131; J1100; J2003; J2004; J2250; J2371; J2405; J2704; J3010

== ENCOUNTER 2025-07-16 08:38 | Outpatient (CLI) | payer OTHER, SELFPAY ==
[2025-07-16 09:44] LABS: TSH 0.99 uIU/mL (0.55-4.78)
== END 2025-07-16 08:39 | disposition home or self-care (01) ==
LOC: LBO 08:39
PROVIDERS: PCP Nurse Practitioner Family; Visit Provider Otolaryngology
DX: R53.83 Other fatigue (principal); E06.3 Autoimmune thyroiditis
CPT/HCPCS: 36415; 84439; 84443